=== PATIENT | male | born 1980 | race Caucasian/White ===

== ENCOUNTER 2025-02-14 09:21 | Inpatient (IN) | payer OTHER, SELFPAY ==
[2025-02-14] VITALS (11 sets, daily range): BP systolic 107–139; BP diastolic 73–92; PULSE 81–101; RESP 14–18; TEMP 36.4–37.3; O2SAT 75–100; BMI 28.2
--- NOTE | 2025-02-14 09:37 | ED.VIS.LOWEX ---
HPI History of Present Illness Chief Complaint: Lower Extremity Injury Detail of Chief Complaint: Injury left leg Informant: patient and parent Narrative Narrative: Patient presents with injury to the left leg that occurred yesterday. Patient apparently had his right foot under the freezer he was trying to get something out of it and lost his balance and fell backwards injuring his left leg. Patient unable to bear weight afterwards. Family took patient to chiropractor today to get some x-rays as they are [place] and they were told he had a femur fracture and needed to come seen by orthopedics. Patient had prior femur fracture to the right femur more than 5 years ago and that was repaired in [place]. Patient denies any other injuries. PFSH PFSH Allergy/AdvReac Type Severity Reaction Status Date / Time No Known Allergies Allergy Verified 02/14/25 09:26 Social History Smoking Status: Never smoker ROS ROS ED Review of Systems ROS Unobtainable: other Constitutional Constitutional ED: Reports lethargy; Denies chills, fever(s), sweats or weight loss Eyes Eyes: Denies blurry vision, change in vision or diplopia ENT ENT ED: Denies rhinorrhea or sore throat Cardiovascular Cardiovascular: Denies chest pain, orthopnea or racing heartbeat Respiratory/Chest Respiratory/Chest: Denies cough, dyspnea, dyspnea on exertion, orthopnea or sputum Gastrointestinal Gastrointestinal: Denies abdominal pain, diarrhea, nausea or vomiting Genitourinary Genitourinary ED: Denies dysuria, hematuria or urinary frequency Musculoskeletal Musculoskeletal: Reports other Details: Left leg injury ; Denies arthralgias, back pain, myalgias or neck pain Integumentary Denies abscess, Abrasions or rash Neurologic Neurologic: Denies headache(s) or weakness Psychiatric Psychiatric: Denies anxiety, depression or suicidal thoughts Endocrine Endocrinology: Denies polydipsia, polyphagia or polyuria Hematologic/Lymphatic Hematologic/Lymphatic: Denies easy bleeding, easy bruising or lymphadenopathy Allergic/Immunologic Allergic/Immunologic ED: Denies mouth swelling, tongue swelling or urticaria EXAM Physical Exam Const Vital Signs: 02/14/25 09:23 02/14/25 10:22 02/14/25 10:35 Temperature 99.1 F Temperature Source Oral Pulse Rate 101 H 93 Respiratory Rate 18 16 Blood Pressure 114/73 107/92 H Blood Pressure Mean 86 97 Pulse Ox 93 97 75 Oxygen Delivery Method Room Air Room Air Room Air Oxygen Flow Rate (L/min) 02/14/25 10:36 Temperature Temperature Source Pulse Rate Respiratory Rate Blood Pressure Blood Pressure Mean Pulse Ox 94 Oxygen Delivery Method Nasal Cannula Oxygen Flow Rate (L/min) 4 Positive well nourished and well developed General Appearance ED: well developed and NAD HEENT Reports TM's clear and moist mucous membranes normocephalic and atraumatic; Negative for trauma or tenderness Tympanic Membrane ED: Yes TM's clear Eyes PERRL and EOMs intact bilaterally General Eye ED: Negative for pale conjunctiva or scleral icterus Neck no lymphadenopathy, supple and no JVD General: Negative for tenderness Chest Wall inspection of chest normal and palpation of chest normal Chest: Negative for tenderness Resp normal respiratory effort and clear to auscultation bilaterally Effort and Inspection: Negative for respiratory distress or pain with movement Auscultation: Negative for rhonchi, wheezes or diminished lung sounds Cardio regular rate, regular rhythm, S1 normal heart sound, S2 normal heart sound and no murmurs Peripheral Pulses: pulses 2+ throughout GI normal to inspection, nondistended, normoactive bowel sounds, soft to palpation, non-tender, non-distended and no masses Back/Spine no CVA tenderness and no thoracic nor lumbar tenderness Extremity Extremity Narrative: Left leg-patient has obvious soft tissue swelling over the left thigh. He has pain with range of motion. Minimal shortening of the left side. Neurovascular intact distally. No broken skin noted General Extremety ED: Negative for edema General Extremity: Negative for edema Neuro oriented x3, CN's II-XII intact bilaterally, no sensory deficits noted and gait normal Sensorium / Orientation: awake, alert, oriented to person, oriented to place and oriented to time Motor Exam: strength 5/5 throughout and strength abnormal Psych mental status grossly normal Skin no rashes or lesions noted and no wounds MDM MDM MDM Narrative Medical decision making narrative: Patient brought to the emergency department by EMS. Patient seen initially at chiropractor today and had x-rays of the left femur that showed a femur fracture. Parents brought a disc with images and will review that. Will place an IV and get basic labs. Will review images and consult with orthopedics. CBC with differential obtained showed a white count of 12.2 with hemoglobin 12.7 and platelet count of 276. Chemistries unremarkable. Lab Data Attestation: I reviewed the patient's lab results. Labs: Laboratory Results - last 24 hr 02/14/25 09:50 WBC 12.2 H RBC 4.07 L Hgb 12.7 L Hct 35.6 L MCV 87.5 MCH 31.2 MCHC 35.7 RDW Std Deviation 38.9 RDW Coeff of Payton 12.2 Plt Count 276 MPV 9.7 Immature Gran % (Auto) 0.400 Neut % (Auto) 78.6 H Lymph % (Auto) 10.3 L Woodson % (Auto) 10.3 H Eos % (Auto) 0.1 Baso % (Auto) 0.3 Absolute Neuts (auto) 9.6 H Absolute Lymphs (auto) 1.26 Nucleated RBC % 0 Sodium 129 L Potassium 4.1 Chloride 93 L Carbon Dioxide 27.0 Anion Gap 10 BUN 14 Creatinine 0.50 L Estim Creat Clear Calc 190.56 Est GFR (MDRD) Non-Af 130 BUN/Creatinine Ratio 27.8 H Glucose 211 H Calcium 8.7 Radiography Diagnostic Testing: Clinical Impression(s) from Imaging Studies Chest X-Ray 02/14/25 10:00 IMPRESSION: Multiple left rib fractures are noted, probably chronic in nature. Marked left pleural thickening is identified. No definite pleural effusion is seen, but cannot exclude a small one. No pneumothorax is seen. No evidence of pulmonary edema. No focal infiltrate is evident. No evidence of cardiomegaly. Mild degenerative changes of the visualized spine are also seen. Reading Location: [facility] Femur X-Ray 02/14/25 10:00 IMPRESSION: A significantly Comminuted Fracture of the intertrochanteric region and proximal shaft of the Left Femur is seen, with significant varus angulation. [id number] degenerative changes of the left knee are seen, upon limited evaluation. Partially visualized right femur demonstrates a partially visualized intramedullary nail and proximal screw. No additional fracture site is seen. At least mild degenerative changes of the visualized lower lumbar spine also noted. Reading Location: [facility] Pelvis X-Ray 02/14/25 10:00 IMPRESSION: A significantly Comminuted Fracture of the intertrochanteric region and proximal shaft of the Left Femur is seen, with significant varus angulation. [id number] degenerative changes of the left knee are seen, upon limited evaluation. Partially visualized right femur demonstrates a partially visualized intramedullary nail and proximal screw. No additional fracture site is seen. At least mild degenerative changes of the visualized lower lumbar spine also noted. Reading Location: [place] [id number] 4 view x-rays of the left femur obtained interpreted by myself as fracture of the left femoral neck and lesser trochanter. Varus angulation noted. Radiology in agreement. 1 view x-ray of the pelvis obtained showed left hip fracture otherwise no other fractures noted. Radiology in agreement. 1 view chest x-ray obtained interpreted by myself as no evidence of infiltrate or pneumothorax or acute disease process. Radiology in agreement. Radiology also noted old left rib fractures. Discharge Plan Triage Chief Complaint: Lower Extremity Injury ED Provider: Heather Alarcon Dx/Rx/DC Orders Clinical Impression: Fall, Closed fracture of left hip Primary Care Provider: DIANA COHEN Referrals: DIANA COHEN [Other] Print Language: Khmer Disposition Disposition: Acute Care [facility]
--- NOTE | 2025-02-14 10:00 | RAD_ITS ---
PROCEDURE: FEMUR MIN 2 VIEWS; PELVIS 1 OR 2 VIEWS 02/14/2025 REASON FOR EXAM: INJURY; FALL TECHNIQUE: FEMUR MIN 2 VIEWS; PELVIS 1 OR 2 VIEWS COMPARISON: None. RAD/Femur Min 2 Views IMPRESSION: A significantly Comminuted Fracture of the intertrochanteric region and proxima l shaft of the Left Femur is seen, with significant varus angulation. [id number] degenerative changes of the left knee are seen, upon limited e valuation. Partially visualized right femur demonstrates a partially visualized intramedul jakob nail and proximal screw. No additional fracture site is seen. At least mild degenerative changes of the visualized lower lumbar spine also no tita. Reading Location: [facility]
--- NOTE | 2025-02-14 10:00 | RAD_ITS ---
PROCEDURE: CHEST 1 VIEW 02/14/2025 REASON FOR EXAM: HIP FX TECHNIQUE: Frontal view of the chest. COMPARISON: None. RAD/Chest 1 View IMPRESSION: Multiple left rib fractures are noted, probably chronic in nature. Marked left pleural thickening is identified. No definite pleural effusion is seen, but cannot exclude a small one. No pneumothorax is seen. No evidence of pulmonary edema. No focal infiltrate is evident. No evidence of cardiomegaly. Mild degenerative changes of the visualized spine are also seen. Reading Location: [place] [id number]
--- NOTE | 2025-02-14 10:00 | RAD_ITS ---
PROCEDURE: FEMUR MIN 2 VIEWS; PELVIS 1 OR 2 VIEWS 02/14/2025 REASON FOR EXAM: INJURY; FALL TECHNIQUE: FEMUR MIN 2 VIEWS; PELVIS 1 OR 2 VIEWS COMPARISON: None. RAD/Pelvis 1 or 2 Views IMPRESSION: A significantly Comminuted Fracture of the intertrochanteric region and proxima l shaft of the Left Femur is seen, with significant varus angulation. [id number] degenerative changes of the left knee are seen, upon limited e valuation. Partially visualized right femur demonstrates a partially visualized intramedul jakob nail and proximal screw. No additional fracture site is seen. At least mild degenerative changes of the visualized lower lumbar spine also no tita. Reading Location: [facility]
[2025-02-14 10:03] LABS: Hematocrit 35.6 % (40-54); Hemoglobin 12.7 g/dL (13.0-16.5); Immature Granulocytes Count 0.050 X10^3/uL (0.0-0.0); Mean Corp Hgb Conc 35.7 g/dL (32-36); Mean Corpuscular Volume 87.5 fL (80-94); Mean Platelet Vol. 9.7 fl (6.2-12.0); NRBC Flagged by Analyzer 0 % (0-5); Platelet Count 276 K/mm3 (150-450); RBC Distribution Width CV 12.2 % (11.6-14.6); RBC Distribution Width SD 38.9 fl (35.1-43.9); Red Blood Count 4.07 M/mm3 (4.6-6.2); White Blood Count 12.2 K/mm3 (4.4-11.0)
[2025-02-14 10:23] LABS: Anion Gap 10 (5-15); BUN 14 mg/dL (4-19); BUN/Creat Ratio 27.8 RATIO (10-20); Calcium,Total 8.7 mg/dL (7.6-11.0); Carbon Dioxide 27.0 mmol/L (21.0-32.0); Chloride 93 mmol/L (98-108); Estimated Creatinine Clearance 190.56 ml/min (50-250); Glucose 211 mg/dL (70-99); Potassium 4.1 mmol/L (3.3-5.1)
--- NOTE | 2025-02-14 11:23 | HP.PCM.HOS_ITS ---
HPI - General General Date of Admission: 02/14/25 Date of Service: 02/14/25 Chief Complaint: left hip fracture HPI Narrative BONITA BLAKE, is a 44 M with a PMH as outlined who presents via the ED on 02/14/2025 with a complaint of left hip fracutre. He caught his foot under the freezer and lost his balance and fell, resulting in injury to his left leg. He could not weight bear and had severe pain in his LLE so the family took him to a chiropractor to get some xrays. They were told the xrays showd he had a left femur fracture and so was told to come to the ED. PFSH Allergy/AdvReac Type Severity Reaction Status Date / Time No Known Allergies Allergy Verified 02/14/25 09:26 Social History Smoking Status: Never smoker Vital Signs Vital Signs Vital Signs: 02/14/25 09:23 02/14/25 10:22 02/14/25 10:35 Temperature 99.1 F Temperature Source Oral Pulse Rate 101 H 93 Respiratory Rate 18 16 Blood Pressure 114/73 107/92 H Blood Pressure Mean 86 97 Pulse Ox 93 97 75 Oxygen Delivery Method Room Air Room Air Room Air Oxygen Flow Rate (L/min) 02/14/25 10:36 02/14/25 11:00 Temperature Temperature Source Pulse Rate 84 Respiratory Rate 16 Blood Pressure 130/81 H Blood Pressure Mean 97 Pulse Ox 94 95 Oxygen Delivery Method Nasal Cannula Oxygen Flow Rate (L/min) 4 Weight Weight: 174 lb 13.225 oz Body Mass Index (BMI) 28.2 Results Lab / Micro Data 02/14/25 09:50 02/14/25 09:50 Labs: Laboratory Results - last 24 hr 02/14/25 09:50: WBC 12.2 H, RBC 4.07 L, Hgb 12.7 L, Hct 35.6 L, MCV 87.5, MCH 31.2, MCHC 35.7, RDW Std Deviation 38.9, RDW Coeff of Payton 12.2, Plt Count 276, MPV 9.7, Immature Gran % (Auto) 0.400, Neut % (Auto) 78.6 H, Lymph % (Auto) 10.3 L, [place] % (Auto) 10.3 H, Eos % (Auto) 0.1, Baso % (Auto) 0.3, Absolute Neuts (auto) 9.6 H, Absolute Lymphs (auto) 1.26, Nucleated RBC % 0, Sodium 129 L, Potassium 4.1, Chloride 93 L, Carbon Dioxide 27.0, Anion Gap 10, BUN 14, C reatinine 0.50 L, Estim Creat Clear Calc 190.56, Est GFR (MDRD) Non-Af 130, B UN/Creatinine Ratio 27.8 H, Glucose 211 H, Calcium 8.7 Imaging Radiology Impression Chest X-Ray 02/14/25 10:00 IMPRESSION: Multiple left rib fractures are noted, probably chronic in nature. Marked left pleural thickening is identified. No definite pleural effusion is seen, but cannot exclude a small one. No pneumothorax is seen. No evidence of pulmonary edema. No focal infiltrate is evident. No evidence of cardiomegaly. Mild degenerative changes of the visualized spine are also seen. Reading Location: [place] [id number] Femur X-Ray 02/14/25 10:00 IMPRESSION: A significantly Comminuted Fracture of the intertrochanteric region and proximal shaft of the Left Femur is seen, with significant varus angulation. [id number] degenerative changes of the left knee are seen, upon limited evaluation. Partially visualized right femur demonstrates a partially visualized intramedullary nail and proximal screw. No additional fracture site is seen. At least mild degenerative changes of the visualized lower lumbar spine also noted. Reading Location: [place] [address] Pelvis X-Ray 02/14/25 10:00 IMPRESSION: A significantly Comminuted Fracture of the intertrochanteric region and proximal shaft of the Left Femur is seen, with significant varus angulation. [id number] degenerative changes of the left knee are seen, upon limited evaluation. Partially visualized right femur demonstrates a partially visualized intramedullary nail and proximal screw. No additional fracture site is seen. At least mild degenerative changes of the visualized lower lumbar spine also noted. Reading Location: [place] [id number]
[2025-02-14] MEDS: 0.9% Normal Saline (1000mL) 1,000 ML 125 ML IV ×2 (13:11→21:18)
--- NOTE | 2025-02-14 13:35 | CON.PCM.OR_ITS ---
HPI Consult Data Date of Consult: 02/14/25 HPI Narrative Reason for Consultation: Left intertrochanteric fracture HPI Narrative: BONITA BLAKE, is a 44 M with PMH of spherocytosis (splenectomy at age 8) who presents to the ER today 02/14/2025 from [place] [facility] office. He was following up today from a chiropractic appointment after having a fall. Fall was 02/13/2025 at their [employer] when his foot got caught under the freezer lost his balance and fell onto his left leg. Chiropractor took x-rays noted a left hip fracture and sent to the office for follow-up. X-rays were consistent with a displaced comminuted left intertrochanteric and subtrochanteric hip fracture. Patient's mother was a patient of Dr. Love and per chiropractor recommendations they followed up with orthopaedics. Dr. Gan on-call for orthopedics was consulted. Patient currently on O2 NC after getting morphine and becoming hypoxic. since being on O2 he has had O2 >94. patient also has a history of right hip fx and IM nail about 5 years ago when he jumped down off a truck/trailer bed. [facility] Home Medications ?Medication ?Instructions ?Recorded ?Last Taken ?Type sertraline 100 mg tablet 200 mg PO DAILY mood stabili zer 02/14/25 Unknown History Allergy/AdvReac Type Severity Reaction Status Date / Time No Known Allergies Allergy Verified 02/14/25 09:26 Social History Smoking Status: Never smoker Vital Signs Vital Signs Vital Signs: 02/14/25 09:23 02/14/25 10:22 02/14/25 10:35 Temperature 99.1 F Temperature Source Oral Pulse Rate 101 H 93 Respiratory Rate 18 16 Respiratory Effort Blood Pressure 114/73 107/92 H Blood Pressure Mean 86 97 Blood Pressure Source Blood Pressure Position Blood Pressure Location Pulse Ox 93 97 75 Oxygen Delivery Method Room Air Room Air Room Air Oxygen Flow Rate (L/min) 02/14/25 10:36 02/14/25 11:00 02/14/25 11:37 Temperature 98.6 F Temperature Source Pulse Rate 84 81 Respiratory Rate 16 16 Respiratory Effort Blood Pressure 130/81 H 126/81 H Blood Pressure Mean 97 96 Blood Pressure Source Blood Pressure Position Blood Pressure Location Pulse Ox 94 95 100 Oxygen Delivery Method Nasal Cannula Oxygen Flow Rate (L/min) 4 02/14/25 11:53 02/14/25 11:56 02/14/25 12:45 Temperature 98 F 98 F Temperature Source Oral Pulse Rate 97 94 Respiratory Rate 14 14 18 Respiratory Effort Blood Pressure 127/86 H 126/76 H Blood Pressure Mean 99 92 Blood Pressure Source Monitor Blood Pressure Position Semi-Fowlers Blood Pressure Location Left Arm Pulse Ox 99 95 96 Oxygen Delivery Method Room Air Nasal Cannula Oxygen Flow Rate (L/min) 2 02/14/25 12:54 Temperature Temperature Source Pulse Rate Respiratory Rate Respiratory Effort Normal Blood Pressure Blood Pressure Mean Blood Pressure Source Blood Pressure Position Blood Pressure Location Pulse Ox Oxygen Delivery Method Nasal Cannula Oxygen Flow Rate (L/min) 2 Weight Weight: 79.3 kg Body Mass Index (BMI) 28.2 Physical Exam Narrative left leg cool to touch obvious deformity SILT of left lower leg able to wiggle toes DP pulses bounding tender to palpation at left hip Lab / Micro Data 02/14/25 09:50 02/14/25 09:50 Labs: Laboratory Results - last 24 hr 02/14/25 09:50: WBC 12.2 H, RBC 4.07 L, Hgb 12.7 L, Hct 35.6 L, MCV 87.5, MCH 31.2, MCHC 35.7, RDW Std Deviation 38.9, RDW Coeff of Payton 12.2, Plt Count 276, MPV 9.7, Immature Gran % (Auto) 0.400, Neut % (Auto) 78.6 H, Lymph % (Auto) 10.3 L, [place] % (Auto) 10.3 H, Eos % (Auto) 0.1, Baso % (Auto) 0.3, Absolute Neuts (auto) 9.6 H, Absolute Lymphs (auto) 1.26, Nucleated RBC % 0, Sodium 129 L, Potassium 4.1, Chloride 93 L, Carbon Dioxide 27.0, Anion Gap 10, BUN 14, C reatinine 0.50 L, Estim Creat Clear Calc 190.56, Est GFR (MDRD) Non-Af 130, B UN/Creatinine Ratio 27.8 H, Glucose 211 H, Calcium 8.7 Imaging Radiology Impression Chest X-Ray 02/14/25 10:00 IMPRESSION: Multiple left rib fractures are noted, probably chronic in nature. Marked left pleural thickening is identified. No definite pleural effusion is seen, but cannot exclude a small one. No pneumothorax is seen. No evidence of pulmonary edema. No focal infiltrate is evident. No evidence of cardiomegaly. Mild degenerative changes of the visualized spine are also seen. Reading Location: [facility] Femur X-Ray 02/14/25 10:00 IMPRESSION: A significantly Comminuted Fracture of the intertrochanteric region and proximal shaft of the Left Femur is seen, with significant varus angulation. [id number] degenerative changes of the left knee are seen, upon limited evaluation. Partially visualized right femur demonstrates a partially visualized intramedullary nail and proximal screw. No additional fracture site is seen. At least mild degenerative changes of the visualized lower lumbar spine also noted. Reading Location: [facility] Pelvis X-Ray 02/14/25 10:00 IMPRESSION: A significantly Comminuted Fracture of the intertrochanteric region and proximal shaft of the Left Femur is seen, with significant varus angulation. [id number] degenerative changes of the left knee are seen, upon limited evaluation. Partially visualized right femur demonstrates a partially visualized intramedullary nail and proximal screw. No additional fracture site is seen. At least mild degenerative changes of the visualized lower lumbar spine also noted. Reading Location: [place] [id number] Assessment & Plan Assessment/Plan (1) Closed fracture of left hip: PLAN: Displaced comminuted left intertrochanteric hip fracture 1. Plan for OR tomorrow for intramedullary nail 2. N.p.o. at midnight 3. Medical optimization per primary 4. Bedrest 5. Hold DVT prophylaxis after midnight.
[2025-02-14 16:59] LABS: AST(SGOT) 203 U/L (<=37); Alanine Aminotransfer ALT/SGPT 130 U/L (<=46); Albumin, Serum 3.7 g/dL (3.5-5.0); Alkaline Phosphatase 103 U/L (40-129); Anion Gap 13 (5-15); BUN 11 mg/dL (4-19); BUN/Creat Ratio 23.1 RATIO (10-20); Calcium,Total 8.6 mg/dL (7.6-11.0); Carbon Dioxide 24.8 mmol/L (21.0-32.0); Chloride 95 mmol/L (98-108); Estimated Creatinine Clearance 190.61 ml/min (50-250); Globulin 4.2 g/dL (2.2-4.2); Glucose 188 mg/dL (70-99); Potassium 4.3 mmol/L (3.3-5.1)
--- NOTE | 2025-02-14 17:09 | PCM.HP.STD ---
HPI - General General Date of Admission: 02/14/25 Date of Service: 02/14/25 Chief Complaint: left hip fracture HPI Narrative BONITA BLAKE, is a 44 M with a PMH as outlined who presents via the ED on 02/14/2025 with a complaint of left hip fracture. He caught his foot under the freezer and lost his balance and fell, resulting in injury to his left leg. He could not weight bear and had severe pain in his LLE so the family took him to a chiropractor to get some xrays. They were told the xrays showed he had a left femur fracture and so was told to come to the ED. I saw patient with his parents by his bedside. He had no active complaints and pain was quite well-controlled. 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 He has no other underlying medical issues. He had a similar fall about 5 years ago and had his right hip also replaced. Review of systems otherwise negative. Vitals at time of review were temperature of 98 Fahrenheit with blood pressure of 127/86, respiratory rate of 14 and pulse rate of 97 he was saturating at 99% on room air. CBC showed hemoglobin of 12.7 with WBC of 12.2 and platelets of 276. Chemistry showed sodium of 133 with potassium of 4.3 and bicarb of 24.8. Anion gap is 13. Creatinine is 0.49. Total bilirubin is 2.63 with AST of 203 and ALT of 130. There are no previous LFTs to compare with. Pelvic x-ray showed a significantly comminuted fracture of the intertrochanteric region and proximal shaft of the left femur and chest x-ray showed multiple left rib fractures which were chronic in nature and marked left pleural thickening with no definite pleural effusion seen. He has been admitted to be managed for acute left hip fracture due to mechanical fall. [facility] Home Medications ?Medication ?Instructions ?Recorded ?Last Taken ?Type sertraline 100 mg tablet 200 mg PO DAILY mood stabilizer 02/14/25 Unknown History Allergy/AdvReac Type Severity Reaction Status Date / Time No Known Allergies Allergy Verified 02/14/25 09:26 Social History Smoking Status: Never smoker ROS Constitutional Constitutional: Reports weakness; Denies anorexia, chills, fatigue, fever(s) or malaise Eyes Eyes: Denies change in vision ENT HEENT: Denies dysphagia or headache(s) Cardiovascular Cardiovascular: Denies chest pain, dyspnea on exertion, edema, orthopnea, palpitations, paroxysmal nocturnal dyspnea or rapid heart rate Respiratory/Chest Respiratory/Chest: Denies cough, dyspnea, shortness of breath at rest or shortness of breath with exertion Gastrointestinal Gastrointestinal: Denies abdominal pain, constipation, diarrhea, nausea or vomiting Genitourinary Genitourinary: Denies dysuria Musculoskeletal Musculoskeletal: Reports joint pain; Denies back pain, joint swelling, myalgias or neck pain Neurologic Neurologic: Reports focal weakness; Denies confusion, dizziness, headache(s) or seizures Psychiatric Psychiatric: Denies anxiety or depression Vital Signs Vital Signs Vital Signs: 02/14/25 09:23 02/14/25 10:22 02/14/25 10:35 Temperature 99.1 F Temperature Source Oral Pulse Rate 101 H 93 Respiratory Rate 18 16 Respiratory Effort Blood Pressure 114/73 107/92 H Blood Pressure Mean 86 97 Blood Pressure Source Blood Pressure Position Blood Pressure Location Pulse Ox 93 97 75 Oxygen Delivery Method Room Air Room Air Room Air Oxygen Flow Rate (L/min) 02/14/25 10:36 02/14/25 11:00 02/14/25 11:37 Temperature 98.6 F Temperature Source Pulse Rate 84 81 Respiratory Rate 16 16 Respiratory Effort Blood Pressure 130/81 H 126/81 H Blood Pressure Mean 97 96 Blood Pressure Source Blood Pressure Position Blood Pressure Location Pulse Ox 94 95 100 Oxygen Delivery Method Nasal Cannula Oxygen Flow Rate (L/min) 4 02/14/25 11:53 02/14/25 11:56 02/14/25 12:45 Temperature 98 F 98 F Temperature Source Oral Pulse Rate 97 94 Respiratory Rate 14 14 18 Respiratory Effort Blood Pressure 127/86 H 126/76 H Blood Pressure Mean 99 92 Blood Pressure Source Monitor Blood Pressure Position Semi-Fowlers Blood Pressure Location Left Arm Pulse Ox 99 95 96 Oxygen Delivery Method Room Air Nasal Cannula Oxygen Flow Rate (L/min) 2 02/14/25 12:54 Temperature Temperature Source Pulse Rate Respiratory Rate Respiratory Effort Normal Blood Pressure Blood Pressure Mean Blood Pressure Source Blood Pressure Position Blood Pressure Location Pulse Ox Oxygen Delivery Method Nasal Cannula Oxygen Flow Rate (L/min) 2 Weight Weight: 174 lb 13.225 oz Body Mass Index (BMI) 28.2 Physical Exam Const alert and no apparent distress Constitutional Narrative: has underlying MRDD but is able to communicate and answer questions. General Appearance: cooperative HEENT normocephalic, head/scalp atraumatic and hearing grossly normal bilaterally Mouth: oral and palatal mucosa normal Eyes PERRL and EOMs intact bilaterally Neck no lymphadenopathy and supple Resp normal respiratory effort and clear to auscultation bilaterally Cardio regular rate, regular rhythm, S1 normal heart sound, S2 normal heart sound and no murmurs GI normal to inspection, nondistended, normoactive bowel sounds, soft to palpation and non-tender Extremity normal to inspection, full ROM and no clubbing, cyanosis or edema Neuro oriented x3, CN's II-XII intact bilaterally and moves all extremities Sensorium / Orientation: awake and alert Motor Exam: strength 5/5 throughout Psych affect normal Results Lab / Micro Data 02/14/25 09:50 02/14/25 14:14 Labs: Laboratory Results - last 24 hr 02/14/25 09:50: WBC 12.2 H, RBC 4.07 L, Hgb 12.7 L, Hct 35.6 L, MCV 87.5, MCH 31.2, MCHC 35.7, RDW Std Deviation 38.9, RDW Coeff of Payton 12.2, Plt Count 276, MPV 9.7, Immature Gran % (Auto) 0.400, Neut % (Auto) 78.6 H, Lymph % (Auto) 10.3 L, Estill % (Auto) 10.3 H, Eos % (Auto) 0.1, Baso % (Auto) 0.3, Absolute Neuts (auto) 9.6 H, Absolute Lymphs (auto) 1.26, Nucleated RBC % 0, Sodium 129 L, Potassium 4.1, Chloride 93 L, Carbon Dioxide 27.0, Anion Gap 10, BUN 14, Creatinine 0.50 L, Estim Creat Clear Calc 190.56, Est GFR (MDRD) Non-Af 130, BUN/Creatinine Ratio 27.8 H, Glucose 211 H, Calcium 8.7 02/14/25 14:14: Sodium 133, Potassium 4.3, Chloride 95 L, Carbon Dioxide 24.8, Anion Gap 13, BUN 11, Creatinine 0.49 L, Estim Creat Clear Calc 190.61, Est GFR (MDRD) Non-Af 132, BUN/Creatinine Ratio 23.1 H, Glucose 188 H, Calcium 8.6, Total Bilirubin 2.63 H, AST 203 H, ALT 130 H, Alkaline Phosphatase 103, Total Protein 7.9, Albumin 3.7, Globulin 4.2, Albumin/Globulin Ratio 0.9, Blood Type O POSITIVE, Antibody Screen NEGATIVE Imaging Radiology Impression Chest X-Ray 02/14/25 10:00 IMPRESSION: Multiple left rib fractures are noted, probably chronic in nature. Marked left pleural thickening is identified. No definite pleural effusion is seen, but cannot exclude a small one. No pneumothorax is seen. No evidence of pulmonary edema. No focal infiltrate is evident. No evidence of cardiomegaly. Mild degenerative changes of the visualized spine are also seen. Reading Location: [facility] Femur X-Ray 02/14/25 10:00 IMPRESSION: A significantly Comminuted Fracture of the intertrochanteric region and proximal shaft of the Left Femur is seen, with significant varus angulation. [id number] degenerative changes of the left knee are seen, upon limited evaluation. Partially visualized right femur demonstrates a partially visualized intramedullary nail and proximal screw. No additional fracture site is seen. At least mild degenerative changes of the visualized lower lumbar spine also noted. Reading Location: [facility]1 Pelvis X-Ray 02/14/25 10:00 IMPRESSION: A significantly Comminuted Fracture of the intertrochanteric region and proximal shaft of the Left Femur is seen, with significant varus angulation. [id number] degenerative changes of the left knee are seen, upon limited evaluation. Partially visualized right femur demonstrates a partially visualized intramedullary nail and proximal screw. No additional fracture site is seen. At least mild degenerative changes of the visualized lower lumbar spine also noted. Reading Location: [facility] Assessment & Plan Assessment/Plan (1) Closed fracture of left hip: (2) Fall: PLAN: Plan #Closed left hip fracture due to mechanical fall Admit to [facility] Patient fell after his leg got caught under the freezer. Imaging shows a left comminuted femoral neck fracture Orthopedics consulted. P.o. oxycodone and IV morphine as needed for pain. Hold off on Tylenol due to elevated liver enzymes PT OT consult. Fall precautions. Chest x-ray did not show any acute cardiopulmonary pathology. There is no indication for any further workup and patient is of low to moderate risk for surgery. #Elevated liver enzymes: Total bilirubin is elevated as well as AST and ALT. There are no previous LFTs to compare with. Will check to see if this is a direct or indirect hyperbilirubinemia and also get liver ultrasound and DVT prophylaxis: Lovenox CODE STATUS: Patient's parents counseled extensively about different types of CODE STATUS including full code, DNR CCA and DNR CCA. They elect for patient to be full code. Charges/Coding Visit Charges Inpatient E&M: 08569 Init Hosp L3
[2025-02-14 20:27] LABS: Bilirubin, Direct 0.63 mg/dL (0.00-0.30)
[2025-02-14 20:35] LABS: Prothrombin Time (Protime)PT. 14.8 SECONDS (11.7-14.9)
[2025-02-14 20:41] LABS: Hepatitis B Surface Antigen Nonreactive (Nonreactive); Hepatitis C Antibody Nonreactive (Nonreactive)
[2025-02-15] VITALS (14 sets, daily range): BP systolic 101–127; BP diastolic 53–78; PULSE 84–126; RESP 16–18; TEMP 36.4–37.2; O2SAT 93–100; BMI 28.2
[2025-02-15 05:57] LABS: Hematocrit 31.4 % (40-54); Hemoglobin 11.0 g/dL (13.0-16.5); Immature Granulocytes Count 0.050 X10^3/uL (0.0-0.0); Mean Corp Hgb Conc 35.0 g/dL (32-36); Mean Corpuscular Volume 89.5 fL (80-94); Mean Platelet Vol. 10.0 fl (6.2-12.0); NRBC Flagged by Analyzer 0 % (0-5); POSITIVE DIFFERENTIAL YES; Platelet Count 206 K/mm3 (150-450); RBC Distribution Width CV 12.3 % (11.6-14.6); RBC Distribution Width SD 40.1 fl (35.1-43.9); Red Blood Count 3.51 M/mm3 (4.6-6.2); White Blood Count 12.0 K/mm3 (4.4-11.0)
--- NOTE | 2025-02-15 06:00 | EKG12_ITS ---
Test Reason : AM EKG Blood Pressure : */* mmHG Vent. Rate : 89 BPM Atrial Rate : 89 BPM P-R Int : 148 ms QRS Dur : 88 ms QT Int : 368 ms P-R-T Axes : 59 19 63 degrees QTcB Int : 447 ms Normal sinus rhythm Nonspecific T wave abnormality Abnormal ECG No previous ECGs available Confirmed by KRISH RIOS, KASANDRA ([id number]), editorial manager KWASI BHATT ([id number]) on 02/15/2025 9:30:28 AM Referred By: NISREEN Confirmed By: KASANDRA RUTHERFORD MD
[2025-02-15 06:03] LABS: Prothrombin Time (Protime)PT. 14.2 SECONDS (11.7-14.9)
[2025-02-15 06:14] LABS: Differential Indicated SCAN CRITERIA MET
[2025-02-15 06:19] LABS: Anion Gap 8 (5-15); BUN 8 mg/dL (4-19); BUN/Creat Ratio 19.7 RATIO (10-20); Calcium,Total 8.4 mg/dL (7.6-11.0); Carbon Dioxide 28.6 mmol/L (21.0-32.0); Chloride 97 mmol/L (98-108); Estimated Creatinine Clearance 233.50 ml/min (50-250); Glucose 189 mg/dL (70-99); Potassium 4.1 mmol/L (3.3-5.1)
[2025-02-15 09:13] LABS: AST(SGOT) 77 U/L (<=37); Alanine Aminotransfer ALT/SGPT 109 U/L (<=46); Albumin, Serum 3.5 g/dL (3.5-5.0); Alkaline Phosphatase 92 U/L (40-129); Bilirubin, Direct 0.71 mg/dL (0.00-0.30); Globulin 3.5 g/dL (2.2-4.2)
--- NOTE | 2025-02-15 10:32 | CASEMGMT ---
SAHARA HAQ Assessment Face to Face with patient for initial transition planning/care coordination assessment. SAHARA HAQ introduced self and role at [facility], pt voices understanding. Pt is A&Ox3 and is resting comfortably in bed and is calm. Pt has a hx of developmental disability but is able to answer most of this RN CM's questions for assessment. Pt's parents at bedside and willing to assist. Care providers, pharmacy, and demographics verified. Admitting dx: Lt Hip fracture due to mechanical fall LACE Strata: 1 PCP: Marcio Cha Specialists: Denies Preferred Pharmacy: [facility] in [place] Insurance: Self pay. SW notified Prescription Benefit: None at this time. Care Management to follow LNOK: Adam (Father), Key (Mother) Living Arrangements: Pt lives with his parents in [place] in a 2 story home with 2 steps to enter. Pt's mother states that they used to live in [place] and that they were in the area for knee surgery under Dr Love for the pt's mother. Pt and family plan to return to [place] at the time of DC ADLs/IADLs: Parents report that the pt is indep at baseline. Parents report that they are able to assist the pt at home when needed. Transportation: Parents DME: [facility] with sufficient supplies including test strips, lancet, and EtOH swabs. Access to a cane, FWW, and W/C. HHC/SNF: denies hx Pt?s goal: TBD Plan: TBD. Follow for rxs costs. Surgery is planned for today. PT plans to evaluate subsequently. At this time, the pt's parents state that they have been through this process before and that they plan to bring the pt back home once medically ready. Pt's parents state that they do not want or need HHC at this time but that they might be open to bringing the pt to OP therapy. Pt and pt's parents deny any further questions or concerns at this time. CM to follow. Bradly Smith RN, CM
[2025-02-15] MEDS: 0.9% Saline Lock 10 ML Syringe IV (10:40)
[2025-02-15] MEDS: 0.9% Normal Saline (1000mL) 1,000 ML 75 ML IV ×2 (10:40→18:35)
--- NOTE | 2025-02-15 11:45 | PCM.PRE.AN2 ---
ASA Classification* ASA Classification ASA Classification: 2 Assessment & Plan Anesthesia* Anesthesia Assessment Anesthesia Assessment: Discussed sedation and/or anesthesia options, risks, benefits, and alternatives with patient/parents/legal guardian/POA. Questions invited. The patient/parents/legal guardian/POA seems to understand and agrees to proceed with anesthesia plan. Reviewed the physical assessment, medical history, allergy history and patient home medications list prior to surgery/procedure/anesthetic and documented any changes. Performed airway and anesthesia risk assessments. Anesthesia Type Anesthesia Type: General Anesthesia Focused Assessment* Temperature: 97.6 F Pulse Rate: 84 Blood Pressure: 127/76 Respiratory Rate: 18 Pulse Ox: 96 Oxygen Flow Rate (L/min): 2 Airway Assessment Mouth opens: >3 cm Mallampati Score: II Labs Anesthesia Preop lab: CBC WBC 12.0 K/mm3 (4.4-11.0) H 02/15/25 05:20 02/15/25 RBC 3.51 M/mm3 (4.6-6.2) L 02/15/25 05:20 02/15/25 Hgb 11.0 g/dL (13.0-16.5) L 02/15/25 05:20 02/15/25 Hct 31.4 % (40-54) L 02/15/25 05:20 02/15/25 Plt Count 206 K/mm3 (150-450) 02/15/25 05:20 02/15/25 CHEMISTRY Potassium 4.1 mmol/L (3.3-5.1) 02/15/25 05:20 02/15/25 Sodium 134 mmol/L (133-145) 02/15/25 05:20 02/15/25 BUN 8 mg/dL (4-19) 02/15/25 05:20 02/15/25 Creatinine 0.40 mg/dL (0.70-1.20) L 02/15/25 05:20 02/15/25 Glucose 189 mg/dL (70-99) H 02/15/25 05:20 02/15/25 COAG PT 14.2 SECONDS (11.7-14.9) 02/15/25 05:20 02/15/25 Pre-Assessment Diagnosis/Proposed Procedure Planned Operative Procedure(s): orif left hip Anesthesia History 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 When Was Last Pacemaker Check QUESTION #4 FULL TEXT: You/Your Family Experience fever (hyperthermia) with Anesthesia Last Oral Intake Last Oral intake: Last Oral Intake NPO since 00:00 02/15/25 08:00 Meds taken in AM with sips of No 02/15/25 08:00 water? Meds patient instructed to take am of surgery PONV PONV - pipe welder: PONV - pipe welder Female HX of Motion Sickness HX of N/V After Surgery Non-Smoker Duration of Surgery greater than 60 minutes Number of Risk Factors PONV Score Height & Weight Height & Weight: Anesthesia: Height & Weight Height 5 ft 5 in 02/14/25 12:38 Weight: 79.3 kg 02/14/25 09:53 Body Mass Index (BMI) 28.2 02/15/25 08:00 Respiratory Assessment Respiratory Assessment - pipe welder: Respiratory Tract Infection Hx - pipe welder Hx Respiratory Tract Infection No 02/14/25 21:14 STOP Sleep Apnea STOP Sleep Apnea - pipe welder: STOP Sleep Apnea - pipe welder Hx Hypertension No 02/15/25 08:45 Hx Sleep Apnea No 02/14/25 12:38 CPAP BIPAP Do you snore loudly (louder No 02/14/25 12:38 than talking or can be heard Do you often feel tired/ No 02/14/25 12:38 fatigued/ sleepy during daytime? Has anyone observed you stop No 02/14/25 12:38 breathing during sleep? STOP Results Negative 02/14/25 12:38 QUESTION #5 FULL TEXT : Do you snore loudly (louder than talking or can be heard through closed doors)? 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 Specify any problems Hx of Preganancy in last 3 N/A 02/14/25 12:38 Months Nurse Filling Out Transfusion KMESSENGE 02/14/25 12:38 & Questions: Date: 02/14/25 02/14/25 12:38 Time: 12:47 02/14/25 12:38 Patient unable to answer at this time (ie. confused, unrespo /Reproduction History /Reproductive History - pipe welder: /Reproductive Hx- pipe welder Hx Now Gestational Age (in weeks): EDC: Hx Hx Para Hx Section SAB Active Medications Active Medications: Current Medications Generic Name Dose Route Start Last Admin Trade Name Freq PRN Reason Stop Dose Admin Enoxaparin Sodium 40 mg 02/15/25 10:00 02/15/25 07:05 Enoxaparin 40 Mg/0.4 Ml Syringe SC Not Given DAILY KATIA Sodium Chloride 250 mls @ 15 mls/hr 02/14/25 12:42 IV .[id number] PRN Saline Flush Sodium Chloride 250 mls @ 15 mls/hr 02/14/25 12:42 IV .[id number] PRN Additional IVPB Infusion Cefazolin Sodium 2 gm/ Sodium 110 mls @ 200 mls/hr 02/15/25 15:00 Chloride IV 02/15/25 15:32 INTRAOP ONE Sodium Chloride 1,000 mls @ 75 mls/hr 02/15/25 10:25 02/15/25 10:40 IV 75 mls/hr .[id number] KATIA Administration Morphine Sulfate 2 - 4 mg 02/14/25 12:55 02/15/25 10:40 Morphine 2 Mg/Ml Syringe IV 2 mg Q3H PRN PRN Administration Pain Score 6-10 Ondansetron HCl 4 mg 02/14/25 12:53 Ondansetron 4 Mg/2 Ml Vial IV Q8H PRN PRN NAUSEA/VOMITING Oxycodone HCl 5 mg 02/14/25 12:55 02/14/25 21:24 Oxycodone 5 Mg Tablet PO 5 mg Q4H PRN PRN Administration Pain Score 4-10 Senna/Docusate Sodium 2 tablet 02/14/25 22:00 02/15/25 07:06 Senna/Docusate Sodium 1 Tablet PO Not Given BID KATIA Sertraline HCl 200 mg 02/15/25 10:00 02/15/25 07:07 Sertraline 100 Mg Tablet PO Not Given DAILY KATIA Sodium Chloride 10 - 40 ml 02/14/25 12:42 02/15/25 10:40 0.9% Saline Lock 10 Ml Syringe IV 10 ml UD PRN Administration SALINE FLUSH PFSH Home Medications ?Medication ?Instructions ?Recorded ?Last Taken ?Type sertraline 100 mg tablet 200 mg PO DAILY mood stabilizer 02/14/25 Unknown History Allergy/AdvReac Type Severity Reaction Status Date / Time No Known Allergies Allergy Verified 02/14/25 09:26 Social History Smoking Status: Never smoker Review of Systems (Anesthesia) ROS Narrative System reviewed and no additional complaints, except as documented.
--- NOTE | 2025-02-15 12:59 | CASEMGMT ---
Social Work- SATISH called Julia to coordinate on pt self pay status. Julia reports that [facility] liaison met with pt family who refused government assistance and who do not qualify for [facility] assistance fund. Pt family did pay deposit to receive discounts. SATISH met with pt and family to discuss self pay status. Pt family report no needs at this time. SATISH remains available to follow. GARCIA James
[2025-02-15] MEDS: Lactated Ringers 1,000 ML 15 ML IV (14:00)
--- NOTE | 2025-02-15 14:46 | PN_ITS ---
Subjective Subjective Patient seen and examined. I saw him with his nurse by his bedside. He complained of pain in his buttock and hip and rated the pain at about 8/10. However he was lying in bed quite comfortably. He is n.p.o. and is due for surgery today. Review of systems otherwise negative. His liver enzymes have started trending downwards. He has remained hemodynamically stable. Objective Data Objective Data Vital Signs: Vital Signs Temp Pulse Resp BP Pulse Ox O2 Del Method O2 Flow Rate 97.6 F L 84 18 127/76 H 96 Nasal Cannula 2 02/15/25 11:50 02/15/25 11:50 02/15/25 11:50 02/15/25 11:50 02/15/25 11:50 02/15/25 11:25 02/15/25 11:50 Oxygen Flow Rate (L/min) 2 Oxygen Delivery Method Nasal Cannula Weight: 174 lb 13.225 oz Body Mass Index (BMI) 28.2 Intake & Output: Intake and Output for Last 24 Hours 02/13/25 02/14/25 02/15/25 23:59 23:59 23:59 Intake Total 1000 / 1000 1800 / 1800 Output Total 1350 / 1350 Balance 1000 / 750 450 / 450 Lab / Micro Data 02/15/25 05:20 02/15/25 05:20 Labs: Laboratory Results - last 24 hr 02/14/25 14:14: Sodium 133, Potassium 4.3, Chloride 95 L, Carbon Dioxide 24.8, Anion Gap 13, BUN 11, Creatinine 0.49 L, Estim Creat Clear Calc 190.61, Est GFR (MDRD) Non-Af 132, BUN/Creatinine Ratio 23.1 H, Glucose 188 H, Calcium 8.6, T otal Bilirubin 2.63 H, AST 203 H, ALT 130 H, Alkaline Phosphatase 103, Total Protein 7.9, Albumin 3.7, Globulin 4.2, Albumin/Globulin Ratio 0.9, Blood Type O POSITIVE, Antibody Screen NEGATIVE 02/14/25 18:32: Direct Bilirubin 0.63 H, Hep Bs Antigen Nonreactive, Hep Bs Antibody Nonreactive, Hepatitis C Antibody Nonreactive 02/14/25 19:55: PT 14.8, INR 1.1 02/15/25 05:20: WBC 12.0 H, RBC 3.51 L, Hgb 11.0 L, Hct 31.4 L, MCV 89.5, MCH 31.3, MCHC 35.0, RDW Std Deviation 40.1, RDW Coeff of Payton 12.3, Plt Count 206, MPV 10.0, Immature Gran % (Auto) 0.400, Neut % (Auto) 64.3, Lymph % (Auto) 14.8 L, Barton % (Auto) 16.7 H, Eos % (Auto) 2.7, Baso % (Auto) 1.1 H, Absolute Neuts (auto) 7.7, Absolute Lymphs (auto) 1.77, Nucleated RBC % 0, Differential Comment COMMENT, PT 14.2, INR 1.1, Sodium 134, Potassium 4.1, Chloride 97 L, Carbon Dioxide 28.6, Anion Gap 8, BUN 8, Creatinine 0.40 L, Estim Creat Clear Calc 233.50, Est GFR (MDRD) Non-Af 140, BUN/Creatinine Ratio 19.7, Glucose 189 H, Calcium 8.4 02/15/25 06:50: Total Bilirubin 1.98 H, Direct Bilirubin 0.71 H, AST 77 H, ALT 109 H, Alkaline Phosphatase 92, Total Protein 7.0, Albumin 3.5, Globulin 3.5 Physical Exam Const alert and no apparent distress Constitutional Narrative: has underlying MRDD but is able to communicate and answer questions. General Appearance: cooperative HEENT normocephalic, head/scalp atraumatic and hearing grossly normal bilaterally Eyes PERRL and EOMs intact bilaterally Neck no lymphadenopathy and supple Resp Resp Narrative: Mildly diminished breath sounds bibasilarly. No wheezes or crackles. On 2 L of oxygen by nasal cannula. Cardio regular rate, regular rhythm, S1 normal heart sound, S2 normal heart sound and no murmurs GI normal to inspection, nondistended, normoactive bowel sounds, soft to palpation and non-tender Extremity Extremity Narrative: Left hip shortened and externally rotated. Skin General Skin Exam: no breakdown Neuro CN's II-XII intact bilaterally and moves all extremities Sensorium / Orientation: awake and alert Motor Exam: general weakness Psych Mood & Affect: flat affect Assessment & Plan Assessment/Plan (1) Closed fracture of left hip: (2) Fall: PLAN: Plan #Closed left hip fracture due to mechanical fall * Patient fell after his leg got caught under the freezer. Imaging shows a left comminuted femoral neck fracture * Orthopedics consulted. * P.o. oxycodone and IV morphine as needed for pain. Hold off on Tylenol due to elevated liver enzymes * PT OT consult. Fall precautions. * Chest x-ray did not show any acute cardiopulmonary pathology. * There is no indication for any further workup and patient is of low to moderate risk for surgery. * for surgery today. #Elevated liver enzymes: * Total bilirubin is elevated as well as AST and ALT.liver enzymes have started trending downwards. Hepatitis panel was negative. Will order liver ultrasound. * It appears that it was mainly an indirect hyperbilirubinemia. There does not appear to be any evidence of hemolysis though. DVT prophylaxis: Lovenox CODE STATUS: full code Charges/Coding Visit Charges Inpatient E&M: 54265 Subs Hosp L2
--- NOTE | 2025-02-15 16:19 | PCM.PN.ORT ---
Subjective Subjective Patient seen and examined. Denies any new complaints. Ready for surgery. Objective Data Objective Data Vital Signs: Vital Signs Temp Pulse Resp BP Pulse Ox O2 Del Method O2 Flow Rate 97.6 F L 84 18 127/76 H 96 Nasal Cannula 2 02/15/25 11:50 02/15/25 11:50 02/15/25 11:50 02/15/25 11:50 02/15/25 11:50 02/15/25 11:25 02/15/25 11:50 Oxygen Flow Rate (L/min) 2 Oxygen Delivery Method Nasal Cannula Weight: 174 lb 13.225 oz Body Mass Index (BMI) 28.2 Intake & Output: Intake and Output for Last 24 Hours 02/13/25 02/14/25 02/15/25 23:59 23:59 23:59 Intake Total 1000 / 1000 1800 / 1800 Output Total 1350 / 1350 Balance 1000 / 750 450 / 450 Lab / Micro Data 02/15/25 05:20 02/15/25 05:20 Labs: Laboratory Results - last 24 hr 02/14/25 14:14: Sodium 133, Potassium 4.3, Chloride 95 L, Carbon Dioxide 24.8, Anion Gap 13, BUN 11, Creatinine 0.49 L, Estim Creat Clear Calc 190.61, Est GFR (MDRD) Non-Af 132, BUN/Creatinine Ratio 23.1 H, Glucose 188 H, Calcium 8.6, Total Bilirubin 2.63 H, AST 203 H, ALT 130 H, Alkaline Phosphatase 103, Total Protein 7.9, Albumin 3.7, Globulin 4.2, Albumin/Globulin Ratio 0.9 02/14/25 18:32: Direct Bilirubin 0.63 H, Hep Bs Antigen Nonreactive, Hep Bs Antibody Nonreactive, Hepatitis C Antibody Nonreactive 02/14/25 19:55: PT 14.8, INR 1.1 02/15/25 05:20: WBC 12.0 H, RBC 3.51 L, Hgb 11.0 L, Hct 31.4 L, MCV 89.5, MCH 31.3, MCHC 35.0, RDW Std Deviation 40.1, RDW Coeff of Payton 12.3, Plt Count 206, MPV 10.0, Immature Gran % (Auto) 0.400, Neut % (Auto) 64.3, Lymph % (Auto) 14.8 L, [place] % (Auto) 16.7 H, Eos % (Auto) 2.7, Baso % (Auto) 1.1 H, Absolute Neuts (auto) 7.7, Absolute Lymphs (auto) 1.77, Nucleated RBC % 0, Differential Comment COMMENT, PT 14.2, INR 1.1, Sodium 134, Potassium 4.1, Chloride 97 L, Carbon Dioxide 28.6, Anion Gap 8, BUN 8, Creatinine 0.40 L, Estim Creat Clear Calc 233.50, Est GFR (MDRD) Non-Af 140, BUN/Creatinine Ratio 19.7, Glucose 189 H, Calcium 8.4 02/15/25 06:50: Total Bilirubin 1.98 H, Direct Bilirubin 0.71 H, AST 77 H, ALT 109 H, Alkaline Phosphatase 92, Total Protein 7.0, Albumin 3.5, Globulin 3.5 Physical Exam Narrative General -A&Ox3, NAD, appears stated age. Vital signs stable, afebrile. Respiratory -normal work of breathing, no intercostal retractions. CV -pulses regular, brisk capillary refill ?4 limbs. Abdomen-soft, nontender, nondistended. No guarding, rigidity, rebound tenderness. Musculoskeletal/neurologic -full range of motion nontender throughout bilateral upper extremities, right lower extremity with full sensation and strength in all dermatomes and myotomes. No midline cervical tenderness.Left lower extremity-no obvious deformity. Pain with logroll of the left lower extremity. Nontender throughout the left knee femoral shaft, tibial shaft and left foot/ankle. Brisk capillary refill. Sensation intact light touch L3-S1 dermatomes. DF, PF, EHL intact. DP, PT 2+. Pelvis is stable, nontender. Skin is intact without lacerations, abrasions. No ecchymosis noted. Assessment & Plan Assessment/Plan (1) Closed fracture of left hip: PLAN: Patient sustained a left intertrochanteric proximal femur fracture. -Closed, neurovascularly intact -Isolated injury -Recommending surgical intervention in the form of left femur cephalomedullary nailing -I discussed the procedure-its risks, benefits and alternative. Risks include but are not limited to bleeding, infection, loss of life or limb, risk of anesthesia, persistent pain or disability, need for additional surgery, nonunion, malunion, failure of orthopedic hardware, neurovascular injury, DVT or PE. Patient expressed understanding these risks and wished proceed with surgery. -Maintenance IV fluids, clear liquid diet after midnight n.p.o. at 2 hours prior to surgery -Type and screen -2 g Ancef on-call to the OR -Bedrest, heel protectors -Plan to proceed with surgery later today when OR becomes available Thank you for this consultation.
[2025-02-15] MEDS: Midazolam 2 MG/2 ML Syringe IV (16:27)
[2025-02-15] MEDS: Cefazolin 1 GM/5 ML Vial 2 GM IV (16:27)
[2025-02-15] MEDS: Lidocaine 2% (5ml sdv) 5 ML VIAL.MPF IV (16:32)
--- NOTE | 2025-02-15 16:40 | RAD_ITS ---
EXAM: INTRAOPERATIVE FLUOROSCOPY CLINICAL HISTORY: Intertrochanteric left femur fracture. COMPARISON: Left femur/hip radiographs 02/14/2025. TECHNIQUE: 8 intraoperative fluoroscopic images are submitted for review. FINDINGS: Patient is status post ORIF of the previously described comminuted intertrochanteric fracture of the proximal left femur, with intramedullary nail and proximal dynamic screw, with single distal interlocking screw visualized. Total fluoroscopy time 111.1 seconds. Total radiation dose 22.97 mGy. RAD/HIP, UNI W/ Pelvis 2-3 Views IMPRESSION: Intraop fluoroscopy status post ORIF of the left femur, as above. Reading Location: [id number]
[2025-02-15] MEDS: fentaNYL 100 MCG/2 ML Ampul IV (16:47)
[2025-02-15] MEDS: Bupiv/Epi 0.25% 30 ML Vial (17:42)
--- NOTE | 2025-02-15 18:12 | OP.PCM_ITS ---
Operative Report (Standard) Operative Information Date of Procedure: 02/15/25 Pre-Operative Diagnosis: Left comminuted intertrochanteric proximal femur fracture Post-Operative Diagnosis: Left comminuted intertrochanteric proximal femur fracture Surgery/Procedure Performed: Left femur cephalomedullary nailing neuropsychiatric aide: Yes Human Resources Training Manager: Joselin Nieves Tasks completed by first front ventilator: Opening & closing and Hemostasis: E lectrocautery Additional lpn medical assistant?: No Type of Anesthesia: General RN Documented Start/Stop Times: Operation Date: 02/15/25 15:00 Case Time Into Pre-Op 02/15/25 13:51 Out of Pre-Op 02/15/25 16:23 Anesthesia Start 02/15/25 16:27 Into Room 02/15/25 16:27 Procedure Start 02/15/25 16:54 Procedure End 02/15/25 17:58 Anesthesia End 02/15/25 18:09 Out of Room 02/15/25 18:09 Procedure Start Time: 16:57 Procedure Stop Time: 17:58 Select all DRAINS/GRAFTS/IMPLANTS that apply: Implanted device Implanted device details: [employer] gamma 4 125 degrees 400 mm x 11 mm, 95 mm lag screw, distal i nterlocking screw 52.5 mm Estimated Blood Loss: 200 cc Specimen collected: No Description of surgery: Patient was seen in preoperative holding area. She was identified by name, medical record number, date of . The operative extremity was marked with a surgical marker. We confirmed informed consent with the patient and questions were answered to her satisfaction. Patient was brought to the operative suite, and general anesthesia was induced on her hospital bed. Endotracheal tube was secured. After adequate anesthesia, patient was transferred to a fracture table with all bony prominences being well-padded. A perineal post was placed to secure the patient on the table. We then applied a ski boot which was well-padded to the operative extremity. The well leg was dropped into extension and secured to the axial post of the fracture table with a pillow and Coban. The left arm was brought across patient's chest with a blanket on her chest. We then performed a closed reduction maneuver with external rotation, traction, internal rotation and adduction. Fluoroscopic images were obtained. The lateral demonstrated significant displacement. Crutch was placed for additional near-anatomic reduction. We then prepped and draped the left lower extremity in normal, sterile orthopedic fashion. A timeout was performed with all parties in attendance in agreement with the side, site, and operation be performed. 2 g Ancef was administered prior to incision. No concerns were voiced and we elected to proceed. I first used fluoroscopy to eliezer the level of the fracture and planned incision for insertion of the cephalomedullary nail device. In line with the long axis of the femur, 4 fingerbreadths proximal to the tip of the greater trochanter, a full-thickness skin incision was planned.. Skin was sharply incised with 10 blade scalpel, carried into the subcutaneous tissues. The IT band was encountered and split and planned trajectory of the nail placement. The greater trochanter was then able to be palpated digitally. I then placed a threaded guidewire just medial to the tip of the greater trochanter and in the anterior third of it on the lateral. Opening reamer was then placed over top of the guidewire after placement was confirmed on C arm. Reduction was again confirmed. Ball-tipped guidewire was placed. Sequential reaming was performed to 12.5 mm. Nail length was measured to be 40 mm. Nail was opened on the back table and assembled and attached to the inserting guide. Nail was placed over top of the ball-tipped guidewire and impacted to appropriate depth. Rotation was confirmed on the lateral. Drill sleeve was placed through the targeting guide. Prior to drilling, a ball spike pusher was used to reduce the lateral trochanter area which was wanted to abduct due to the abductor tension. There was also significant flexion of the proximal segment consistent with a basicervical fragment. A stab incision was made along the proximal anterior thigh and blunt dissection was carried down to level of the femoral neck. A Sheehan was used to provide a posterior force on the proximal segment. We drilled the pin for the lag screw at an appropriate position and depth, tip to apex distance less than 25 mm on AP and lateral combined. Depth gauge was used to measure the length of the screw, 90 mm. We then used the cannulated drill to drill to an appropriate depth. Drill was removed, drill pin left in place. Lag screw was placed over top of the drill pin and tightened to an appropriate depth. Setscrew was then tightened, and then turned back a quarter turn to allow the lag screw to slide. Perfect manzanita technique was used to place a single distal interlocking screw through the dynamic slot of the screw. Skin was incised full-thickness down the level of the IT band which was also split in line with the skin incision. I drilled bicortically through the distal interlocking slot of the nail. I measured for a 52.5 mm interlocking screw which was placed by hand with excellent purchase. Instruments were removed as well as the outrigger for the nail. Final fluoroscopic images were obtained. Final fluoroscopic images were obtained. We irrigated the wounds copiously with normal saline solution. Hemostasis was excellent at this point. We then closed the deeper layers, IT band with 0 Vicryl. Intradermal buried stitches of 2-0 Vicryl were utilized and skin finally reapproximated with skin fabienne. Sterile compression dressing of Xeroform, 4 x 4's, and Tegaderm was applied. Patient tolerated procedure well without complication. He was transferred back to her hospital bed and subsequently to PACU in stable condition. Need for skilled lpn medical assistant: Joselin Nieves PA-C was critical to the outcome of the case. During the course of the procedure the physician lpn medical assistant played a vital role. Her intimate knowledge of my steps in the procedure aided in safe and expedient completion of the procedure. The PA played a vital role in positioning particularly in obtaining the appropriate positioning. The PA was also vital in the retraction of soft tissues during the exposure and protecting vital structures. The PA was also vital and obtaining fracture reduction and assisting with hardware placement. She also played a vital role in closure and dressing application with my direct supervision. Intraoperative medications: 2 g Ancef IV Post Operative Plan: Weightbearing: Weightbearing as tolerated left lower extremity with a walker Antibiotics: Ancef 1 g x 3 doses postoperatively, 1 dose given preoperatively DVT Prophylaxis: Lovenox as ordered. Recommend 4 weeks postoperative anticoagulation. Lovenox versus oral Eliquis 2.5 mg p.o. twice daily. Patel: None Dressing: Dry sterile dressing changes daily and as needed for saturation X-Rays: 2 weeks postop in the office Follow-up: 2 weeks post-operatively with me in the office Surgical Findings: Comminuted approximately femur fracture left. Stable following fixation. Complications Complications: No Admit VTE Documentation VTE Present on Admission: No VTE Mechan Device Prophylaxis: SCD's VTE Pharm Prophylaxis ordered?: Yes
--- NOTE | 2025-02-15 18:15 | PCM.POST.ANE ---
Anesthesia: Postop Eval I Current Vital Signs Temperature: 97.5 F Pulse Rate: 126 Blood Pressure: 101/53 Respiratory Rate: 16 Pulse Ox: 100 Assessment Airway patent: Yes Spontaneous unlabored respirations: Yes nausea: No Vomiting: No Anesthesia Complication: No Fluid Hydration Crystalloid volume administer (ml): 1,000 Total IV fluid infused: 1,000 Progress Note Anesthesia document: Postop Eval 1 completed: Yes
--- NOTE | 2025-02-15 18:16 | PCM.POSTANE2 ---
Anesthesia Postop Eval I Sum Postop Eval Completion status Anesthesia document: Postop Eval 1 completed: Yes Anesthesia Postop Eval I Summary Anesthesia Postop Eval I Summary: Anesthesia Postop Eval I: Assessment Summary Airway patent Yes 02/15/25 18:15 Spontaneous unlabored Yes 02/15/25 18:15 respirations Mental status nausea No 02/15/25 18:15 Vomiting No 02/15/25 18:15 Anesthesia Postop Eval I: Fluid Summary Crystalloid volume administer 1,000 02/15/25 18:15 (ml) Colloids volume administered ( ml) Blood Product volume administered (ml) Total IV fluid infused 1,000 02/15/25 18:15 Anesthesia Postop Eval I: Summary Notes Anesthesia Complication No 02/15/25 18:15 Anesthesia Complication Comment: Post-operative progress note Anesthesia: Postop Eval II Evaluation Mental status: Awake Pain Level: 0 nausea: No Vomiting: No
--- NOTE | 2025-02-15 19:57 | PCM.HOSP.N ---
Hospitalist Note Patient refused the liver US secondary to self pay status.
[2025-02-16] VITALS (13 sets, daily range): BP systolic 67–126; BP diastolic 43–86; PULSE 96–118; RESP 16–18; TEMP 36.5–36.9; O2SAT 94–100
[2025-02-16] MEDS: 0.9% Saline Lock 10 ML Syringe IV (00:13)
[2025-02-16] MEDS: Cefazolin 1 GM/50 ML BAG IV ×3 (00:13→16:10)
[2025-02-16] MEDS: 0.9% Normal Saline (1000mL) 1,000 ML 75 ML IV (03:46)
[2025-02-16 08:00] LABS: Hematocrit 27.3 % (40-54); Hemoglobin 9.5 g/dL (13.0-16.5); Immature Granulocytes Count 0.090 X10^3/uL (0.0-0.0); Mean Corp Hgb Conc 34.8 g/dL (32-36); Mean Corpuscular Volume 90.1 fL (80-94); Mean Platelet Vol. 10.6 fl (6.2-12.0); NRBC Flagged by Analyzer 0 % (0-5); POSITIVE DIFFERENTIAL YES; Platelet Count 190 K/mm3 (150-450); RBC Distribution Width CV 12.0 % (11.6-14.6); RBC Distribution Width SD 39.5 fl (35.1-43.9); Red Blood Count 3.03 M/mm3 (4.6-6.2); White Blood Count 16.7 K/mm3 (4.4-11.0)
[2025-02-16 08:03] LABS: Differential Indicated SCAN CRITERIA MET
[2025-02-16 08:41] LABS: Polychromasia 1+
[2025-02-16 09:21] LABS: Anion Gap 9 (5-15); BUN 13 mg/dL (4-19); BUN/Creat Ratio 26.6 RATIO (10-20); Calcium,Total 8.1 mg/dL (7.6-11.0); Carbon Dioxide 26.5 mmol/L (21.0-32.0); Chloride 95 mmol/L (98-108); Estimated Creatinine Clearance 194.58 ml/min (50-250); Glucose 263 mg/dL (70-99); Potassium 4.3 mmol/L (3.3-5.1)
[2025-02-16] MEDS: 0.9% Normal Saline (1000mL) 1,000 ML 999 ML IV (10:07)
[2025-02-16] MEDS: 0.9% Normal Saline (1000mL) 1,000 ML 125 ML IV (11:11)
--- NOTE | 2025-02-16 11:44 | PN_ITS ---
Subjective Subjective Patient seen and examined with his nurse by his bedside. Patient looked very pale and was diaphoretic during my review. Pulse was weak and thready. His mother was by his bedside. HE denied any lightheadedness, palpitations, nausea or vomiting. There was no bleeding from surgical site. Blood sugar was 298. Vitals checked showed BP of 67/43. A bolus of normal saline 1L stat ordered. Objective Data Objective Data Vital Signs: Vital Signs Temp Pulse Resp BP Pulse Ox O2 Del Method O2 Flow Rate 97.7 F L 96 18 82/56 L 99 Nasal Cannula 3 02/16/25 08:16 02/16/25 10:37 02/16/25 08:16 02/16/25 10:39 02/16/25 10:37 02/16/25 10:37 02/16/25 10:37 Oxygen Flow Rate (L/min) 3 Oxygen Delivery Method Nasal Cannula Weight: 174 lb 13.225 oz Body Mass Index (BMI) 28.2 Intake & Output: Intake and Output for Last 24 Hours 02/14/25 02/15/25 02/16/25 23:59 23:59 23:59 Intake Total 1000 / 1000 2800 / 2800 2266.25 / 2266.25 Output Total 2150 / 2150 400 / 400 Balance 1000 / 750 650 / 650 1866.25 / 1866.25 Lab / Micro Data 02/16/25 07:37 02/16/25 07:37 Labs: Laboratory Results - last 24 hr 02/16/25 07:37: WBC 16.7 H, RBC 3.03 L, Hgb 9.5 L, Hct 27.3 L, MCV 90.1, MCH 31.4, MCHC 34.8, RDW Std Deviation 39.5, RDW Coeff of Payton 12.0, Plt Count 190, MPV 10.6, Immature Gran % (Auto) 0.500, Neut % (Auto) 77.2 H, Lymph % (Auto) 7.4 L, [place] % (Auto) 14.4 H, Eos % (Auto) 0.1, Baso % (Auto) 0.4, Absolute Neuts (auto) 12.9 H, Absolute Lymphs (auto) 1.24, Nucleated RBC % 0, Platelet Estimate ADEQUATE, Polychromasia 1+, Sodium 130 L, Potassium 4.3, Chloride 95 L, Carbon Dioxide 26.5, Anion Gap 9, BUN 13, Creatinine 0.48 L, Estim Creat Clear Calc 194.58, Est GFR (MDRD) Non-Af 132, BUN/Creatinine Ratio 26.6 H, Glucose 263 H, Calcium 8.1 02/16/25 10:02: POC Glucose 298 H Radiography Diagnostic Testing: Radiology Impression Hip/Pelvis X-Ray 02/15/25 16:40 IMPRESSION: Intraop fluoroscopy status post ORIF of the left femur, as above. Reading Location: [facility] Physical Exam Const Constitutional Narrative: has underlying MRDD but is able to communicate and answer questions. Patient very pale, frail, weak. Diaphoretic. HEENT normocephalic, head/scalp atraumatic and hearing grossly normal bilaterally Mouth: dry mucous membranes Eyes PERRL and EOMs intact bilaterally Neck supple and no JVD Lymph Lymphatic: no lymphedema noted Resp normal respiratory effort Resp Narrative: Mildly diminished breath sounds bibasilarly. No wheezes or crackles. On 3 L of oxygen by nasal cannula today. Cardio regular rhythm, S1 normal heart sound, S2 normal heart sound and no murmurs Cardio Narrative: tachycardic GI normal to inspection, nondistended, normoactive bowel sounds, soft to palpation and non-tender Extremity normal to inspection, full ROM and no clubbing, cyanosis or edema Extremity Narrative: intact dressing over left hip. No evidence of bleeding at surgical site. Skin General Skin Exam: no breakdown Neuro Neuro Narrative: lethargic. Sensorium / Orientation: awake Motor Exam: general weakness Psych Psych Narrative: flat affect Assessment & Plan Assessment/Plan (1) Closed fracture of left hip: (2) Fall: PLAN: Plan #Closed left hip fracture due to mechanical fall * Patient fell after his leg got caught under the freezer. Imaging shows a left comminuted femoral neck fracture * patient had left hip ORIF on 02/15/2025. POD 1. * Orthopedics on board. * P.o. oxycodone and IV morphine as needed for pain. Hold off on Tylenol due to elevated liver enzymes * PT OT consult. Fall precautions. * Chest x-ray did not show any acute cardiopulmonary pathology. #Acute hypotension * patient noted to be markedly hypotensive this morning. Patient left PACU at ~ 18:30 per the chart. HE was tachycardic at that time, with HR In the 120s. * HR remained in the 110s-130s overnight into this morning. His BP was markedly low at 67/43 * patient moved from his chair into his bed. Given a bolus of normal saline 1L x 1. BP came up to 96/66 * will continue with IVF NS @ 150cc/hr x 2 bags overnight. I expect that his tachyardia will also improve as the BP improves with hydration #Elevated liver enzymes: * Total bilirubin is elevated as well as AST and ALT.liver enzymes have started trending downwards. Hepatitis panel was negative. Will order liver ultrasound. * It appears that it was mainly an indirect hyperbilirubinemia. * There does not appear to be any evidence of hemolysis though. * liver USG pending. Patient refused as he would have to be self pay. * #Leukocytosis: WBC 16.7. Likely reactive. No clear evidence of infection. Will monitor and trend. #Hyponatremia: Sodium is 130 today. Likely due to dehydration. Remain hydrated with IV fluids as above. #History of prediabetes with hyperglycemia: Blood sugar today is 298. Started on insulin sliding scale. Accu-Cheks ACHS. #History of spherocytosis: s/p remote splenectomy. Stable DVT prophylaxis: PO eliquis 2.5mg bid. DC lovenox CODE STATUS: full code Charges/Coding Visit Charges Inpatient E&M: 18769 Subs Hosp L3
--- NOTE | 2025-02-16 11:54 | PN.ORTHO_ITS ---
Subjective Subjective Patient is a 44-year-old male postop day 1 status post left IM nail with Dr. Gan 02/15/2025. Patient resting comfortably in bed. not in acute distress. States taking Tylenol and oxycodone as needed and ice help to relieve pain. Patient has been up with therapy. Walking with the assit of a walker. Afebrile, no chest pain, shortness of breath, negative calf pain/ erythema, and no other signs of DVT. Objective Data Objective Data Vital Signs: Vital Signs Temp Pulse Resp BP Pulse Ox O2 Del Method O2 Flow Rate 97.7 F L 96 18 82/56 L 99 Nasal Cannula 3 02/16/25 08:16 02/16/25 10:37 02/16/25 08:16 02/16/25 10:39 02/16/25 10:37 02/16/25 10:37 02/16/25 10:37 Oxygen Flow Rate (L/min) 3 Oxygen Delivery Method Nasal Cannula Weight: 79.3 kg Body Mass Index (BMI) 28.2 Intake & Output: Intake and Output for Last 24 Hours 02/14/25 02/15/25 02/16/25 23:59 23:59 23:59 Intake Total 1000 / 1000 2800 / 2800 2266.25 / 2266.25 Output Total 2150 / 2150 400 / 400 Balance 1000 / 750 650 / 650 1866.25 / 1866.25 Lab / Micro Data 02/16/25 07:37 02/16/25 07:37 Labs: Laboratory Results - last 24 hr 02/16/25 07:37: WBC 16.7 H, RBC 3.03 L, Hgb 9.5 L, Hct 27.3 L, MCV 90.1, MCH 31.4, MCHC 34.8, RDW Std Deviation 39.5, RDW Coeff of Payton 12.0, Plt Count 190, MPV 10.6, Immature Gran % (Auto) 0.500, Neut % (Auto) 77.2 H, Lymph % (Auto) 7.4 L, [place] % (Auto) 14.4 H, Eos % (Auto) 0.1, Baso % (Auto) 0.4, Absolute Neuts (auto) 12.9 H, Absolute Lymphs (auto) 1.24, Nucleated RBC % 0, Platelet Estimate ADEQUATE, Polychromasia 1+, Sodium 130 L, Potassium 4.3, Chloride 95 L, Carbon Dioxide 26.5, Anion Gap 9, BUN 13, Creatinine 0.48 L, Estim Creat Clear Calc 194.58, Est GFR (MDRD) Non-Af 132, BUN/Creatinine Ratio 26.6 H, Glucose 263 H, Calcium 8.1 02/16/25 10:02: POC Glucose 298 H Radiography Diagnostic Testing: Radiology Impression Hip/Pelvis X-Ray 02/15/25 16:40 IMPRESSION: Intraop fluoroscopy status post ORIF of the left femur, as above. Reading Location: [id number] Physical Exam Narrative Patient resting comfortably in bed No signs of acute distress Satting well on room air Limb is warm to touch, Sensation intact throughout entire lower extremity, including saphenous, sural, superficial and deep peroneal, and tibial distribution. DP/PT pulses bounding. wiggles toes Dressing clear dry intact Calf nontender to palpation, no erythema, no edema. Negative Homans Assessment & Plan Assessment/Plan (1) Closed fracture of left hip: PLAN: Plan 1. Will continue PT today. Weightbearing as tolerated with a walker 2. plan for discharge ultimately per primary. Due to patient living in [place], [place] in he may benefit from another day in the hospital before planning to return home. 3. Patient will follow up for post op appointment 2 weeks in the office this will need to be arranged. 4. If patient does go home he will need arrangement for outpatient physical therapy. 5. WBC 16.7 acute reactive leukocytosis: secondary to pre operative decadron. no acute systemic signs of infection. will monitor, and likely self resolve. 6. H/H 9.5/27.3: post operavtive anemia secondary to acute blood loss intraoperatively. Patient is asymptomatic at this time. No intraoperative complications. will continue to monitor. no acute interventions. 7. DVT prophylaxis : Lovenox x 4 weeks versus Eliquis 2.5 mg p.o. twice daily for DVT prophylaxis. If switching to oral Eliquis this will be a duration of 2 weeks followed by 2 weeks of aspirin 81 mg twice daily 8. Pain control: patient instructed to take tylenol 500mg 2 tablets TID. and oxycodone 1-2 tablets every 4-6 hours only as needed for pain control. 9. ok to remove post op dressing. post op day 5 10. ortho will continue to follow
--- NOTE | 2025-02-16 12:07 | NURSING ---
This RN went into pt room around 0800. Pt resting in bed with mother at bedside. Vitals stable. Therapy got pt up to bathroom and chair later in the morning and therapy reported dizziness when up. Pt placed in chair. BP dropped to 98/60, HR [address] Veras notified. Dr Veras and this RN went to pt room to see pt. Pt diaphoretic, pale. Blood sugar was 289. 1L IV fluid bolus ordered, followed by NS at 125/hr for 1.5L. This RN rechecked BP once pt back to bed and BP was 60s/40s. Dr Veras notified again and instructed this RN to recheck BP one hour after IVF bolus completed. Pt resting in bed, mother at bedside. This RN rechecked pt's BP at 1200, after IVF bolus, and BP was 96/[address] Veras notified. NS running at 125/hour.
[2025-02-16 13:15] LABS: AST(SGOT) 55 U/L (<=37); Alanine Aminotransfer ALT/SGPT 107 U/L (<=46); Albumin, Serum 3.1 g/dL (3.5-5.0); Alkaline Phosphatase 93 U/L (40-129); Bilirubin, Direct 0.81 mg/dL (0.00-0.30); Globulin 3.6 g/dL (2.2-4.2)
[2025-02-16] MEDS: 0.9% Normal Saline (1000mL) 1,000 ML 150 ML IV (17:53)
[2025-02-16] MEDS: Senna/Docusate Sodium 1 Tablet 2 TABLET PO (21:05)
[2025-02-17] VITALS (8 sets, daily range): BP systolic 104–125; BP diastolic 64–78; PULSE 104–118; RESP 16–18; TEMP 36.7–37.3; O2SAT 95–98
[2025-02-17] MEDS: 0.9% Normal Saline (1000mL) 1,000 ML 150 ML IV (00:35)
[2025-02-17 04:24] LABS: Hematocrit 22.3 % (40-54); Hemoglobin 7.7 g/dL (13.0-16.5); Immature Granulocytes Count 0.070 X10^3/uL (0.0-0.0); Mean Corp Hgb Conc 34.5 g/dL (32-36); Mean Corpuscular Volume 90.3 fL (80-94); Mean Platelet Vol. 10.3 fl (6.2-12.0); NRBC Flagged by Analyzer 0 % (0-5); POSITIVE DIFFERENTIAL YES; Platelet Count 183 K/mm3 (150-450); RBC Distribution Width CV 12.2 % (11.6-14.6); RBC Distribution Width SD 39.0 fl (35.1-43.9); Red Blood Count 2.47 M/mm3 (4.6-6.2); White Blood Count 15.1 K/mm3 (4.4-11.0)
[2025-02-17 04:33] LABS: Differential Indicated SCAN CRITERIA MET
[2025-02-17 04:42] LABS: Anion Gap 6 (5-15); BUN 13 mg/dL (4-19); BUN/Creat Ratio 33.8 RATIO (10-20); Calcium,Total 7.9 mg/dL (7.6-11.0); Carbon Dioxide 29.1 mmol/L (21.0-32.0); Chloride 99 mmol/L (98-108); Estimated Creatinine Clearance 239.49 ml/min (50-250); Glucose 210 mg/dL (70-99); Potassium 3.9 mmol/L (3.3-5.1)
[2025-02-17 05:20] LABS: Differential Comment SCANNED
--- NOTE | 2025-02-17 08:43 | PCM.PN.ORT ---
Subjective Subjective Patient is a 44-year-old male PMH spherocytosis (splenectomy at age 8), MRDD, postop day 2 status post left IM nail with Dr. Gan 02/15/2025. Patient resting comfortably in bed. not in acute distress. States taking Tylenol and oxycodone as needed and ice help to relieve pain. Patient has been up with therapy. Walking with the assit of a walker. Afebrile, no chest pain, shortness of breath, negative calf pain/ erythema, and no other signs of DVT. patient still requiring NC 2 L . H/H has dropped to 7.7 today . he remains tachycardic. Objective Data Objective Data Vital Signs: Vital Signs Temp Pulse Resp BP Pulse Ox O2 Del Method O2 Flow Rate 98.2 F 104 H 16 104/64 95 Nasal Cannula 2 02/17/25 03:08 02/17/25 03:08 02/17/25 03:08 02/17/25 03:08 02/17/25 08:24 02/17/25 08:24 02/17/25 08:24 Oxygen Flow Rate (L/min) 2 Oxygen Delivery Method Nasal Cannula Weight: 79.3 kg Body Mass Index (BMI) 28.2 Intake & Output: Intake and Output for Last 24 Hours 02/15/25 02/16/25 02/17/25 23:59 23:59 23:59 Intake Total 2800 / 2800 3605.00 / 3605.00 2150 / 2150 Output Total 2150 / 2150 1425 / 1425 Balance 650 / 650 2180.00 / 2180.00 2150 / 2150 Lab / Micro Data 02/17/25 04:08 02/17/25 04:08 Labs: Laboratory Results - last 24 hr 02/16/25 07:37: Sodium 130 L, Potassium 4.3, Chloride 95 L, Carbon Dioxide 26.5, Anion Gap 9, BUN 13, Creatinine 0.48 L, Estim Creat Clear Calc 194.58, Est GFR (MDRD) Non-Af 132, BUN/Creatinine Ratio 26.6 H, Glucose 263 H, Calcium 8.1, Total Bilirubin 2.11 H, Direct Bilirubin 0.81 H, AST 55 H, ALT 107 H, Alkaline Phosphatase 93, Total Protein 6.7, Albumin 3.1 L, Globulin 3.6 02/16/25 10:02: POC Glucose 298 H 02/16/25 16:09: POC Glucose 315 H 02/16/25 21:08: POC Glucose 239 H 02/17/25 04:08: WBC 15.1 H, RBC 2.47 L, Hgb 7.7 L, Hct 22.3 L, MCV 90.3, MCH 31.2, MCHC 34.5, RDW Std Deviation 39.0, RDW Coeff of Payton 12.2, Plt Count 183, MPV 10.3, Immature Gran % (Auto) 0.500, Neut % (Auto) 65.4, Lymph % (Auto) 15.1 L, Power % (Auto) 15.0 H, Eos % (Auto) 3.3, Baso % (Auto) 0.7, Absolute Neuts (auto) 9.9 H, Absolute Lymphs (auto) 2.27, Nucleated RBC % 0, Differential Comment SCANNED, Sodium 134, Potassium 3.9, Chloride 99, Carbon Dioxide 29.1, Anion Gap 6, BUN 13, Creatinine 0.39 L, Estim Creat Clear Calc 239.49, Est GFR (MDRD) Non-Af 140, BUN/Creatinine Ratio 33.8 H, Glucose 210 H, Calcium 7.9 02/17/25 06:39: POC Glucose 220 H Physical Exam Narrative Patient resting comfortably in bed No signs of acute distress 2 L NC denies chest pain Limb is warm to touch, Sensation intact throughout entire lower extremity, including saphenous, sural, superficial and deep peroneal, and tibial distribution. DP/PT pulses bounding. wiggles toes Dressing clear dry intact Calf nontender to palpation, no erythema, no edema. Negative Homans Assessment & Plan Assessment/Plan (1) Closed fracture of left hip: PLAN: 1. Will continue PT today. Weightbearing as tolerated with a walker 2. plan for discharge ultimately per primary. orthopaedically is stable, however is still requiring O2 and H/H did drop this AM. 3. Patient will follow up for post op appointment 2 weeks in the office this will need to be arranged. 4. If patient does go home he will need arrangement for outpatient physical therapy. 5. WBC 15.1 acute reactive leukocytosis: secondary to pre operative decadron. no acute systemic signs of infection. will monitor, and likely self resolve. 6. H/H 7.7/22.3: post operavtive anemia. he is symptomatic at this time with tachycardia, and hypotension. transfuse per primary. 7. tachycardia: consider CTA to rule out PE. spoke with hospitalist today. patient has been tachycardic since admission with low O2 sats , and yesterday some hypotension. tachy may also be due to anemia, however in the setting of spherocytosis and delayed presentation of hip fracture, it is beneficial to rule out PE at this time. 8. DVT prophylaxis : Lovenox x 4 weeks versus Eliquis 2.5 mg p.o. twice daily for DVT prophylaxis. If switching to oral Eliquis this will be a duration of 2 weeks followed by 2 weeks of aspirin 81 mg twice daily 9. Pain control: patient instructed to take tylenol 500mg 2 tablets TID. and oxycodone 1-2 tablets every 4-6 hours only as needed for pain control. 10. ok to remove post op dressing. post op day 5 11. Ortho to continue to follow
[2025-02-17 08:45] LABS: AST(SGOT) 27 U/L (<=37); Alanine Aminotransfer ALT/SGPT 59 U/L (<=46); Albumin, Serum 2.8 g/dL (3.5-5.0); Alkaline Phosphatase 80 U/L (40-129); Bilirubin, Direct 0.67 mg/dL (0.00-0.30); Globulin 3.1 g/dL (2.2-4.2)
[2025-02-17] MEDS: APIXABAN 2.5 MG TABLET (WCH) PO (09:20)
[2025-02-17] MEDS: Senna/Docusate Sodium 1 Tablet 2 TABLET PO (09:20)
--- NOTE | 2025-02-17 11:00 | CT_ITS ---
EXAM: CT Angiography Chest Without and With Intravenous Contrast CLINICAL INDICATION: SHORTNESS OF BREATH TECHNIQUE: Axial computed tomographic angiography images of the chest without and with intravenous contrast. This CT exam was performed using one or more of the following dose reduction techniques: automated exposure control, adjustment of the mA and/or kV according to patient size, and/or use of iterative reconstruction technique. MIP reconstructed images were created and reviewed. COMPARISON: No relevant prior studies available. FINDINGS: PULMONARY ARTERIES: Multiple bilateral pulmonary emboli. Mild heart strain. AORTA: No acute findings. No thoracic aortic aneurysm. LUNGS AND PLEURAL SPACES: Lung emphysema/COPD. Left basilar atelectasis or pneumonia. No mass. No significant effusion. HEART: Unremarkable. No cardiomegaly. No significant pericardial effusion. No evidence of RV dysfunction. BONES/JOINTS: No acute fracture. No dislocation. SOFT TISSUES: Unremarkable. LYMPH NODES: Unremarkable. No enlarged lymph nodes. CT/CTA Chest W/WO Contrast IMPRESSION: 1. Multiple bilateral pulmonary emboli. Mild heart strain. 2. Lung emphysema/COPD. Left basilar atelectasis or pneumonia. Red Alert: Multiple bilateral pulmonary emboli. The critical information above was relayed directly by me by telephone to Agustina Veras on 02/17/2025 at 11:36 am with readback verification. Reading Location: [id number]
--- NOTE | 2025-02-17 11:05 | PN_ITS ---
Subjective Subjective Patient seen and examined. His mother was by his bedside. Patient said he had no active complaints. However, he still remains tachycardic. His BP has improved and is 120/68 today. However, HR still remains in the 110s-120s. His Hb has also dropped to 7.7 today, down from 9.5 yesterday. Objective Data Objective Data Vital Signs: Vital Signs Temp Pulse Resp BP Pulse Ox O2 Del Method O2 Flow Rate 98.0 F 118 H 18 120/68 97 Nasal Cannula 2 02/17/25 09:10 02/17/25 09:10 02/17/25 09:10 02/17/25 09:10 02/17/25 09:10 02/17/25 09:10 02/17/25 09:10 Oxygen Flow Rate (L/min) 2 Oxygen Delivery Method Nasal Cannula Weight: 174 lb 13.225 oz Body Mass Index (BMI) 28.2 Intake & Output: Intake and Output for Last 24 Hours 02/15/25 02/16/25 02/17/25 23:59 23:59 23:59 Intake Total 2800 / 2800 3605.00 / 3605.00 2150 / 2150 Output Total 2150 / 2150 1425 / 1425 350 / 350 Balance 650 / 650 2180.00 / 2180.00 1800 / 1800 Lab / Micro Data 02/17/25 04:08 02/17/25 04:08 Labs: Laboratory Results - last 24 hr 02/14/25 14:14: Crossmatch See Detail 02/16/25 07:37: Total Bilirubin 2.11 H, Direct Bilirubin 0.81 H, AST 55 H, ALT 107 H, Alkaline Phosphatase 93, Total Protein 6.7, Albumin 3.1 L, Globulin 3.6 02/16/25 16:09: POC Glucose 315 H 02/16/25 21:08: POC Glucose 239 H 02/17/25 04:08: WBC 15.1 H, RBC 2.47 L, Hgb 7.7 L, Hct 22.3 L, MCV 90.3, MCH 31.2, MCHC 34.5, RDW Std Deviation 39.0, RDW Coeff of Payton 12.2, Plt Count 183, MPV 10.3, Immature Gran % (Auto) 0.500, Neut % (Auto) 65.4, Lymph % (Auto) 15.1 L, [place] % (Auto) 15.0 H, Eos % (Auto) 3.3, Baso % (Auto) 0.7, Absolute Neuts (auto) 9.9 H, Absolute Lymphs (auto) 2.27, Nucleated RBC % 0, Differential Comment SCANNED, Sodium 134, Potassium 3.9, Chloride 99, Carbon Dioxide 29.1, Anion Gap 6, BUN 13, Creatinine 0.39 L, Estim Creat Clear Calc 239.49, Est GFR (MDRD) Non-Af 140, BUN/Creatinine Ratio 33.8 H, Glucose 210 H, Calcium 7.9, T otal Bilirubin 1.47 H, Direct Bilirubin 0.67 H, AST 27, ALT 59 H, Alkaline Phosphatase 80, Total Protein 5.9, Albumin 2.8 L, Globulin 3.1 02/17/25 06:39: POC Glucose 220 H Physical Exam Const alert and no apparent distress Constitutional Narrative: has underlying MRDD but is able to communicate and answer questions. Patient still looks pale, weak and sweaty. General Appearance: cooperative HEENT normocephalic, head/scalp atraumatic and hearing grossly normal bilaterally Eyes PERRL and EOMs intact bilaterally Neck no lymphadenopathy, supple and no JVD Lymph Lymphatic: no lymphedema noted Resp normal respiratory effort Resp Narrative: Mildly diminished breath sounds bibasilarly. No wheezes or crackles. On 2 L of oxygen by nasal cannula today. Cardio regular rhythm, S1 normal heart sound, S2 normal heart sound and no murmurs Cardio Narrative: tachycardic; sinus tachycardia GI normal to inspection, nondistended, normoactive bowel sounds, soft to palpation and non-tender Extremity normal to inspection Extremity Narrative: intact dressing over left hip. No evidence of bleeding at surgical site. Skin General Skin Exam: no breakdown Neuro moves all extremities Neuro Narrative: lethargic. Sensorium / Orientation: awake Motor Exam: strength 5/5 throughout and general weakness Psych Psych Narrative: flat affect Mood & Affect: flat affect Assessment & Plan Assessment/Plan (1) Closed fracture of left hip: (2) Fall: PLAN: Plan #Closed left hip fracture due to mechanical fall * Patient fell after his leg got caught under the freezer. Imaging shows a left comminuted femoral neck fracture * patient had left hip ORIF on 02/15/2025. POD 2. * Orthopedics on board. * P.o. oxycodone and IV morphine as needed for pain. Hold off on Tylenol due to elevated liver enzymes * PT OT consult. Fall precautions. * Chest x-ray did not show any acute cardiopulmonary pathology. #Acute hypotension and sinus tachcyardia. * hypotension has resolved after hydration. Patient however has remained tachycardic, with HR in the 110s-120s. * I discussed with the ortho PA today. It turns out patient had a lapse of about 2 days after the fracture before coming in to the hospital as he wnt to a chiropractor in [place]. He is therefore at increased risk of PE * will therefore order stat CTA chest to rule out a PE; I was informed by nursing that radiology called that CTA chest showed multiple bilateral PEs * will therefore start on heparin drip. Transferred to PCU already this morning. * #Acute anemia due to acute blood loss from surgery. * Hb is 7.7. Hb was 12.7 on admission and was 9.5 yesterday * may be due to acute blood loss from surgery. * will transfuse with one unit of one unit of PRBC. * #acute bilateral submassive PE * As stated above patient noted to be tachycardic right from PACU after he had surgery on 02/15/2025. He remained tachycardic overnight and into the morning of 02/16/2025. At time of review on 02/16/2025, patient was pale and tachycardic with weak pulse. Blood pressure check was 67/43. He had not received any fluids after the surgery and so it was thought that his hypotension and tachycardia was due to volume depletion. He was therefore aggressively hydrated with IV fluids. His blood pressure did improve and was in the 120 systolic this morning. However tachycardia persisted and as stated above in light of patient having been at home with a fracture for about 2 days before coming in he is at high risk of PE. Stat CT of the chest was ordered this morning and showed multiple bilateral pulmonary emboli with mild heart strain and lung emphysema and left basilar atelectasis or pneumonia, with no evidence of RV dysfunction. * Will start on heparin drip. Check BNP and troponin series. 2D echo also ordered. * Patient transferred to PCU as stated above. * I discussed with Dr. Hawley on phone about whether patient is a candidate for revascularization therapy. He is going to review the CT to determine if patient would be a suitable candidate. * Dr Hawley reviewed the imaging and stated that he did not think the patient was a candidate for thrombectomy as hte blood clots were subsegmental. * I consulted pulmonology. I spoke to Dr. Solomon Urbina of telemetry critical care at 3:25pm. He requested for an echo. I explained to him an echo had already been ordered but due to it being Wednesday and the timing, echo could not be done until Wednesday. He stated he wanted patient transferred for an echo. I explained to him that it would be difficult to transfer the patient to a tertiary center just for a 2D echo in light of bed availability and challenges we have had with transfer. * I spoke to Dr. Bee the security tech on-call to inquire about a bedside echo or to see if the manufacturing production technician could be called in for an echo. Upon discussing patient's presentation and current vitals with him with patient being on 2 L of oxygen and saturating at 98%, blood pressure 117/78 at time of our discussion, respiratory rate of 16, HR of 118 (trending down slightly), proBNP being elevated at 2044, initial troponin of 37 and delta troponin going to 34, CT scan finding showing no evidence of right ventricular strain and my having discussed the patient already with Dr. Hawley who reviewed patient's images and said patient was not a candidate for catheter directed thrombectomy, cardiology did not think that the echo needed to be done stat as patient was hemodynamically stable and tachycardia was improving. Per cardiology echo can be done on Wednesday. * #Elevated liver enzymes: * Total bilirubin is elevated as well as AST and ALT. Liver enzymes have started trending downwards. Hepatitis panel was negative. * It appears that it was mainly an indirect hyperbilirubinemia. * There does not appear to be any evidence of hemolysis though. * Patient refused liver [facility] as he would have to be self pay. * #Leukocytosis: WBC today is down to 15.1, down from 16.7 yesterday. Likely reactive. No clear evidence of infection. Will monitor and trend. #Hyponatremia: resolved. #History of prediabetes with hyperglycemia: Started on insulin sliding scale. Accu-Cheks ACHS. #History of spherocytosis: s/p remote splenectomy. Stable DVT prophylaxis: Started on heparin drip in light of the PE. CODE STATUS: full code Charges/Coding Visit Charges Inpatient E&M: 85033 Subs Hosp L3
--- NOTE | 2025-02-17 11:47 | ECHOD_ITS ---
Reason For Study Reason For Study: EMBOLI Procedure This was a 2D Doppler, Color Flow transthoracic echocardiogram. The study was technically difficult. Definity deferred due to pulmonary pressures. Exam performed portable in patient room. Left Ventricle Normal LV size. Left ventricular systolic function is normal. The left ventricular ejection fraction is 60 %. No regional wall motion abnormalities noted. Right Ventricle Normal RV size. Atria Normal left atrium. Normal right atrium. Mitral Valve Normal mitral valve. Tricuspid Valve Normal tricuspid valve. Moderately severe (3+) tricuspid valve insufficiency. Pulmonary artery systolic pressure is 79 mmHg. Severe pulmonary hypertension. Aortic Valve The aortic valve is not well visualized. Pulmonic Valve Normal pulmonic valve. Great Vessels Normal aortic root. The pulmonary artery is normal size. Inferior vena cava collapse with respiration. Pericardium/Pleural No pericardial effusion. MMode/2D Measurements & Calculations LVOT diam: 2.0 cm LA dimension(2D): 3.5 cm LVOT area: 3.2 cm2 Time Measurements MV dec time: 0.18 sec Doppler Measurements & Calculations MV E max nick: 71.7 cm/sec Lat Peak E' Nick: 16.5 cm/sec Med Peak E' Nick: 13.8 cm/sec MV A max nick: 56.6 cm/sec E/E' lat: 4.4 E/E' med: 5.2 MV E/A: 1.3 MV V2 max: 76.6 cm/sec MV dec slope: 444.8 cm/sec2 Ao V2 max: 122.8 cm/sec MV max P.4 mmHg Ao max P.0 mmHg MV V2 mean: 60.5 cm/sec Ao V2 mean: 89.8 cm/sec MV mean P.5 mmHg Ao mean P.6 mmHg MV V2 VTI: 17.2 cm Ao V2 VTI: 23.3 cm MVA(VTI): 4.4 cm2 AV (velocity ratio): 1.0 SKY(I,D): 3.3 cm2 SKY(V,D): 3.2 cm2 LV V1 max: 121.6 cm/sec SV(LVOT): 75.9 ml PA V2 max: 133.3 cm/sec LV V1 max P.9 mmHg PA V2 mean: 96.7 cm/sec LV V1 mean P.3 mmHg LV V1 mean: 84.6 cm/sec LV V1 VTI: 23.4 cm TR max nick: 436.1 cm/sec TR max P.1 mmHg ECHO/Echo Complete Interpretation Summary Normal LV size. Left ventricular systolic function is normal. The left ventricular ejection fraction is 60 %. Pulmonary artery systolic pressure is 79 mmHg. Severe pulmonary hypertension. Contrast injection was performed. Ordering Physician: Agustina Veras Referring Physician: EDWINA PCP Performed By: Ashanti Govea RCS
[2025-02-17 12:21] LABS: Prothrombin Time (Protime)PT. 14.0 SECONDS (11.7-14.9)
[2025-02-17 12:22] LABS: Partial Thromboplast Time 25.4 Seconds (24.1-36.2)
[2025-02-17] MEDS: HEPARIN/D5w 25,000 UNITS 25,000 UNITS/250 ML IV.SOLN. 11.9 UNITS CONT INF (12:26)
[2025-02-17 12:40] LABS: Troponin T High Sensitivity 37 ng/L (<=22)
[2025-02-17 12:41] LABS: Pro- Brain NATRIURETIC PEPTIDE 2045 pg/mL (<=450)
[2025-02-17 14:28] LABS: Troponin T High Sens 2 HR 34 ng/L (<=22)
--- NOTE | 2025-02-17 15:48 | PCMCONS.TICU ---
HPI Consult Data Date of Consult: 02/17/25 HPI Narrative HPI Narrative: BONITA BLAKE, is a 44 M who presents [facility] Home Medications ?Medication ?Instructions ?Recorded ?Last Taken ?Type sertraline 100 mg tablet 200 mg PO DAILY mood stabilizer 02/14/25 Unknown History Allergy/AdvReac Type Severity Reaction Status Date / Time No Known Allergies Allergy Verified 02/14/25 09:26 Social History Smoking Status: Never smoker Objective Data Objective Data Vital Signs: Vital Signs Last response Temperature 36.8 C 02/17/25 14:53 Temperature Source Oral 02/17/25 14:53 Pulse Rate 108 H 02/17/25 14:53 Pulse Strength Normal (2+) 02/17/25 10:00 Respiratory Rate 16 02/17/25 14:53 Respiratory Effort Normal, Non-Labored 02/17/25 15:40 Respiratory Depth Normal 02/17/25 15:40 Respiratory Pattern Normal 02/17/25 15:40 Blood Pressure 117/78 02/17/25 14:53 Blood Pressure Mean 91 02/17/25 14:53 Blood Pressure Source Monitor 02/17/25 14:53 Blood Pressure Position Semi-Fowlers 02/17/25 14:53 Blood Pressure Location Left Arm 02/17/25 14:53 Baseline BP 127/76 02/15/25 18:58 Pulse Ox 98 02/17/25 14:53 Oxygen Delivery Method Nasal Cannula 02/17/25 15:40 Oxygen Flow Rate (L/min) 2 02/17/25 15:40 I&O: I&O Last 24 Hours 02/16/25 02/17/25 02/17/25 23:59 11:59 23:59 Intake Total 1338.75 / 3605.00 2150 / 2150 0 / 2150 Output Total 1025 / 1425 350 / 850 500 / 850 Balance 313.75 / 2180.00 1800 / 1300 -500 / 1300 I&O: Total Stay 02/14/25 09:21 thru 02/17/25 14:53 Intake Total 9555.00 Output Total 4425 Balance 5130.00 Current Meds Ordered / Administered: Current meds ordered / Administered Generic Name Dose Route Start Last Admin Trade Name Freq PRN Reason Stop Dose Admin Calcium Carbonate 500 mg 02/16/25 08:00 02/17/25 11:29 Calcium Carbonate 500 Mg Tablet PO 500 mg TIDCM KATIA Administration Heparin Sodium (Porcine) 0 unit 02/17/25 11:41 Heparin Nomogram Adjustment 5,000 Unit/Ml Vial IV UD PRN Dose Adjustment Protocol Sodium Chloride 250 mls @ 15 mls/hr 02/14/25 12:42 IV .[id number] PRN Saline Flush Sodium Chloride 250 mls @ 15 mls/hr 02/14/25 12:42 IV .[id number] PRN Additional IVPB Infusion Heparin Sodium/Dextrose 25,000 units in 250 mls @ 11.895 mls/hr 02/17/25 11:45 02/17/25 12:26 CONT INF 15 unit/kg/hr .Q21H2M KATIA 11.9 mls/hr Administration Protocol 15 UNIT/KG/HR Insulin Human Lispro 0 unit 02/16/25 11:00 02/17/25 11:29 Insulin Lispro 100 Unit/Ml Insuln.Pen SC 1 units ACHS KATIA Administration Protocol Morphine Sulfate 2 - 4 mg 02/14/25 12:55 02/15/25 10:40 Morphine 2 Mg/Ml Syringe IV 2 mg Q3H PRN PRN Administration Pain Score 6-10 Ondansetron HCl 4 mg 02/14/25 12:53 Ondansetron 4 Mg/2 Ml Vial IV Q8H PRN PRN NAUSEA/VOMITING Oxycodone HCl 5 mg 02/14/25 12:55 02/17/25 11:36 Oxycodone 5 Mg Tablet PO 5 mg Q4H PRN PRN Administration Pain Score 4-10 Senna/Docusate Sodium 2 tablet 02/14/25 22:00 02/17/25 09:20 Senna/Docusate Sodium 1 Tablet PO 2 tablet BID KATIA Administration Sertraline HCl 200 mg 02/16/25 22:00 02/16/25 21:05 Sertraline 100 Mg Tablet PO 200 mg QHS KATIA Administration Sodium Chloride 10 - 40 ml 02/14/25 12:42 02/16/25 00:13 0.9% Saline Lock 10 Ml Syringe IV 10 ml UD PRN Administration SALINE FLUSH Lab / Micro Data 02/17/25 04:08 02/17/25 04:08 Labs: Laboratory Results - last 24 hr 02/14/25 14:14: Crossmatch See Detail 02/16/25 16:09: POC Glucose 315 H 02/16/25 21:08: POC Glucose 239 H 02/17/25 04:08: WBC 15.1 H, RBC 2.47 L, Hgb 7.7 L, Hct 22.3 L, MCV 90.3, MCH 31.2, MCHC 34.5, RDW Std Deviation 39.0, RDW Coeff of Payton 12.2, Plt Count 183, MPV 10.3, Immature Gran % (Auto) 0.500, Neut % (Auto) 65.4, Lymph % (Auto) 15.1 L, [place] % (Auto) 15.0 H, Eos % (Auto) 3.3, Baso % (Auto) 0.7, Absolute Neuts (auto) 9.9 H, Absolute Lymphs (auto) 2.27, Nucleated RBC % 0, Differential Comment SCANNED, Sodium 134, Potassium 3.9, Chloride 99, Carbon Dioxide 29.1, Anion Gap 6, BUN 13, Creatinine 0.39 L, Estim Creat Clear Calc 239.49, Est GFR (MDRD) Non-Af 140, BUN/Creatinine Ratio 33.8 H, Glucose 210 H, Calcium 7.9, Total Bilirubin 1.47 H, Direct Bilirubin 0.67 H, AST 27, ALT 59 H, Alkaline Phosphatase 80, Total Protein 5.9, Albumin 2.8 L, Globulin 3.1 02/17/25 06:39: POC Glucose 220 H 02/17/25 11:27: POC Glucose 211 H 02/17/25 12:03: PT 14.0, INR 1.1, APTT 25.4, Troponin T High Sens 37 H, NT pro BNP II 2044 H 02/17/25 14:00: Troponin T Hi Sens 2 Hr 34 H Imaging Radiology Impression Chest CTA 02/17/25 11:00 IMPRESSION: 1. Multiple bilateral pulmonary emboli. Mild heart strain. 2. Lung emphysema/COPD. Left basilar atelectasis or pneumonia. Red Alert: Multiple bilateral pulmonary emboli. The critical information above was relayed directly by me by telephone to Agustina Veras on 02/17/2025 at 11:36 am with readback verification. Reading Location: [facility] Assessment and Plan . Assessment and plan: HPI 44 yo male non-smoker admitted 02/14/25 w/ femoral neck fracture after GLF at home 0n 02/13/25. Imaging revealed femoral neck fracture - admitted and orthopedic surgery consultation obtained. On 02/15/25 he underwent uncomplicated IM nail placement using GETA. Postoperatively, noted persistent tachycardia w/ HR 105-125 sustained despite volume expansion and analgesia. On 02/16/25 noted diaphoresis and hypotension requiring IVF bolus w/ improved BP. Above prompted CTA chest which was performed 02/17/25 am - noted bilateral segmental and subsegmental emboli - no obvious large central thrombi. Report notes mild heart strain w/o further elaboration. On my review, it appears that the RV:LV ratio is a bit increased. Subsequently, IV UFH has been initiated w/o bolus. Lab reveals modest elevation troponin and significantly elevated p-BNP. BP is WNL - persistent tachycardia 100-110 BPM. He is breathing O2 2 LPM comfortably at rest. He is not very forthcoming, but is largely w/o complaints and appears in NAD. I have been told that TTE is not currently available. EXAM GEN NAD VS as above HEENT O2 N/C NECK no obvious JVD COR tachy, reg CHEST CTA ABD soft EXT minimal edema SKIN w/d GONZALEZ NF ASSESSMENT/RECOMMENDATION Young male admitted w/ acute femoral neck fracture requiring operative repair 02/15/25. He has subsequently experienced persistent tachycardia as well as an episode of diaphoresis and hypotension, improved w/ IVF. CTA subsequently has revealed extensive PTED w bilateral segmental filling defects. There is a suggestion of increased RV on CT. Cardiac biomarkers are elevated as well. IV UFH has been initiated. At this point, he appears to be intermediate risk for worsening or decompensation, given persistent tachycardia and elevated biomarkers. RV function possibly compromised based on CT findings. I believe TTE w/ assessment of RV size and function would be very important to further assess risk for worsening or decompensation and also better assess whether more aggressive treatment would be indicated at this time. Unfortunately, multiple inquiries have been made, and it appears that echocardiography is not available at this facility until 02/19/25. I would continue IV UFH for now w/ aggressive attempts to get PTT therapeutic GUCCI. I would also recommend transfer to a facility w/ access to more urgent echocardiography in order to further assess the RV size and function and better classify his risk for worsening or decompensation. I also believe he would benefit from being at a tertiary facility w/ availability of additional treatment modalities such as catheter-directed thrombolysis or mechanical extraction if he were to deteriorate. Long d/w NOK at regarding current condition, treatment, and rationale for further diagnostics. Critical Care Time: 60 minutes The entirety of this encounter was done via Telemedicine
[2025-02-17 16:45] LABS: Troponin T High Sens 4 HR 29 ng/L (<=22)
[2025-02-17 18:24] LABS: Partial Thromboplast Time 38.3 Seconds (24.1-36.2)
[2025-02-17] MEDS: Heparin Nomogram Adjustment 5,000 UNIT/ML VIAL IV (18:33)
[2025-02-18 00:50] LABS: Partial Thromboplast Time 55.3 Seconds (24.1-36.2)
[2025-02-18 03:10] VITALS: BP 108/62; PULSE 94; RESP 16; TEMP 36.9; O2SAT 97
[2025-02-18 06:27] LABS: Hematocrit 26.7 % (40-54); Hemoglobin 9.3 g/dL (13.0-16.5); Immature Granulocytes Count 0.070 X10^3/uL (0.0-0.0); Mean Corp Hgb Conc 34.8 g/dL (32-36); Mean Corpuscular Volume 92.1 fL (80-94); Mean Platelet Vol. 10.3 fl (6.2-12.0); NRBC Flagged by Analyzer 0.4 % (0-5); POSITIVE DIFFERENTIAL YES; Platelet Count 214 K/mm3 (150-450); RBC Distribution Width CV 13.2 % (11.6-14.6); RBC Distribution Width SD 43.0 fl (35.1-43.9); Red Blood Count 2.90 M/mm3 (4.6-6.2); White Blood Count 15.7 K/mm3 (4.4-11.0)
[2025-02-18] MEDS: HEPARIN/D5w 25,000 UNITS 25,000 UNITS/250 ML IV.SOLN. 13.5 UNITS CONT INF (06:27)
[2025-02-18 06:37] LABS: Differential Indicated SCAN CRITERIA MET
[2025-02-18 06:46] LABS: Partial Thromboplast Time 48.2 Seconds (24.1-36.2)
[2025-02-18] MEDS: Heparin Nomogram Adjustment 5,000 UNIT/ML VIAL IV ×2 (06:49→13:28)
[2025-02-18 06:59] LABS: Anion Gap 5 (5-15); BUN 10 mg/dL (4-19); BUN/Creat Ratio 26.9 RATIO (10-20); Calcium,Total 8.3 mg/dL (7.6-11.0); Carbon Dioxide 32.9 mmol/L (21.0-32.0); Chloride 96 mmol/L (98-108); Estimated Creatinine Clearance 245.79 ml/min (50-250); Glucose 228 mg/dL (70-99); Potassium 3.9 mmol/L (3.3-5.1)
[2025-02-18 07:11] VITALS: O2SAT 93
[2025-02-18 08:43] LABS: Polychromasia 1+
--- NOTE | 2025-02-18 09:01 | PN.ORTHO_ITS ---
Subjective Subjective Patient seen and examined this morning. CTA chest ordered yesterday due to persistent tachycardia and hypoxia revealed multiple bilateral pulmonary emboli with mild heart strain. Patient was transferred to PCU and started on heparin drip. At time my examination, patient reports no fever some chills no nausea vomiting, chest pain or shortness of breath. States he was out of bed yesterday. Pain controlled. Objective Data Objective Data Vital Signs: Vital Signs Temp Pulse Resp BP Pulse Ox O2 Del Method O2 Flow Rate 98.5 F 94 16 108/62 97 Nasal Cannula 2 02/18/25 03:10 02/18/25 03:10 02/18/25 03:10 02/18/25 03:10 02/18/25 03:10 02/18/25 03:10 02/18/25 03:10 Oxygen Flow Rate (L/min) 2 Oxygen Delivery Method Nasal Cannula Weight: 174 lb 13.225 oz Body Mass Index (BMI) 28.2 Intake & Output: Intake and Output for Last 24 Hours 02/16/25 02/17/25 02/18/25 23:59 23:59 23:59 Intake Total 3605.00 / 3605.00 2341.6 / 2341.6 167.17 / 167.17 Output Total 1425 / 1425 1725 / 1725 450 / 450 Balance 2180.00 / 2180.00 616.6 / 616.6 -282.83 / -282.83 Lab / Micro Data 02/18/25 06:14 02/18/25 06:14 Labs: Laboratory Results - last 24 hr 02/14/25 14:14: Crossmatch See Detail 02/17/25 11:27: POC Glucose 211 H 02/17/25 12:03: PT 14.0, INR 1.1, APTT 25.4, Troponin T High Sens 37 H, NT pro BNP II 2045 H 02/17/25 14:00: Troponin T Hi Sens 2 Hr 34 H 02/17/25 16:15: Troponin T Hi Sens 4Hr 29 H 02/17/25 17:14: POC Glucose 232 H 02/17/25 18:00: APTT 38.3 H 02/17/25 21:16: POC Glucose 248 H 02/17/25 23:58: APTT 55.3 H 02/18/25 06:14: WBC 15.7 H, RBC 2.90 L, Hgb 9.3 L, Hct 26.7 L, MCV 92.1, MCH 32.1 H, MCHC 34.8, RDW Std Deviation 43.0, RDW Coeff of Payton 13.2, Plt Count 214, MPV 10.3, Immature Gran % (Auto) 0.400, Neut % (Auto) 63.4, Lymph % (Auto) 13.5 L, Coal % (Auto) 12.5 H, Eos % (Auto) 9.1 H, Baso % (Auto) 1.1 H, Absolute Neuts (auto) 9.9 H, Absolute Lymphs (auto) 2.11, Nucleated RBC % 0.4, Platelet Estimate ADEQUATE, Polychromasia 1+, APTT 48.2 H, Sodium 134, Potassium 3.9, C hloride 96 L, Carbon Dioxide 32.9 H, Anion Gap 5, BUN 10, Creatinine 0.38 L, Estim Creat Clear Calc 245.79, Est GFR (MDRD) Non-Af 142, BUN/Creatinine Ratio 26.9 H, Glucose 228 H, Calcium 8.3 02/18/25 06:23: POC Glucose 219 H Radiography Diagnostic Testing: Radiology Impression Chest CTA 02/17/25 11:00 IMPRESSION: 1. Multiple bilateral pulmonary emboli. Mild heart strain. 2. Lung emphysema/COPD. Left basilar atelectasis or pneumonia. Red Alert: Multiple bilateral pulmonary emboli. The critical information above was relayed directly by me by telephone to Agustina Veras Rosy on 02/17/2025 at 11:36 am with readback verification. Reading Location: [id number] Physical Exam Narrative General - A&Ox3, NAD. VSS/AF. Satting well on 2 L nasal cannula Left lower extremity -incisional dressing C/D/I. SILT Sural, Saphenous, SPN, DPN, Tibial N. distributions. DP, PT 2+. BCR. DF, PF, EHL 5/5. No calf TTP. Assessment & Plan Assessment/Plan (1) Closed fracture of left hip: PLAN: POD# 3 s/p left femur CMN - Pain controlled-continue regimen - Medicine following for medical management - PT/OT -encourage mobilization today if able. - Anticoagulant per primary for treatment of bilateral pulmonary emboli. - Will follow
[2025-02-18 09:10] VITALS: BP 105/62; PULSE 110; RESP 16; TEMP 36.9; O2SAT 97
[2025-02-18 09:34] VITALS: O2SAT 83
[2025-02-18] MEDS: Furosemide 20 MG/2 ML VIAL IV (11:05)
--- NOTE | 2025-02-18 11:32 | PN_ITS ---
Subjective Subjective Patient seen and examined. His mother was by his bedside. He had no active complaints today. His tachycardia is improving and was down to 94 this morning, though he subsequently went up to 110. He is on 2L of oxygen and dropped to 83% on room air. He was transfused with a unit of PRBC yesterday and Hb is uup to 9.3 today. Objective Data Objective Data Vital Signs: Vital Signs Temp Pulse Resp BP Pulse Ox O2 Del Method O2 Flow Rate 98.4 F 110 H 16 105/62 83 Room Air 2 02/18/25 09:10 02/18/25 09:10 02/18/25 09:10 02/18/25 09:10 02/18/25 09:34 02/18/25 09:34 02/18/25 09:30 Oxygen Flow Rate (L/min) 2 Oxygen Delivery Method Room Air Weight: 174 lb 13.225 oz Body Mass Index (BMI) 28.2 Intake & Output: Intake and Output for Last 24 Hours 02/16/25 02/17/25 02/18/25 23:59 23:59 23:59 Intake Total 3605.00 / 3605.00 2341.6 / 2341.6 167.17 / 167.17 Output Total 1425 / 1425 1725 / 1725 1175 / 1175 Balance 2180.00 / 2180.00 616.6 / 616.6 -1007.83 / -1007.83 Lab / Micro Data 02/18/25 06:14 02/18/25 06:14 Labs: Laboratory Results - last 24 hr 02/14/25 14:14: Crossmatch See Detail 02/17/25 11:27: POC Glucose 211 H 02/17/25 12:03: PT 14.0, INR 1.1, APTT 25.4, Troponin T High Sens 37 H, NT pro BNP II 2045 H 02/17/25 14:00: Troponin T Hi Sens 2 Hr 34 H 02/17/25 16:15: Troponin T Hi Sens 4Hr 29 H 02/17/25 17:14: POC Glucose 232 H 02/17/25 18:00: APTT 38.3 H 02/17/25 21:16: POC Glucose 248 H 02/17/25 23:58: APTT 55.3 H 02/18/25 06:14: WBC 15.7 H, RBC 2.90 L, Hgb 9.3 L, Hct 26.7 L, MCV 92.1, MCH 32.1 H, MCHC 34.8, RDW Std Deviation 43.0, RDW Coeff of Payton 13.2, Plt Count 214, MPV 10.3, Immature Gran % (Auto) 0.400, Neut % (Auto) 63.4, Lymph % (Auto) 13.5 L, [place] % (Auto) 12.5 H, Eos % (Auto) 9.1 H, Baso % (Auto) 1.1 H, Absolute Neuts (auto) 9.9 H, Absolute Lymphs (auto) 2.11, Nucleated RBC % 0.4, Platelet Estimate ADEQUATE, Polychromasia 1+, APTT 48.2 H, Sodium 134, Potassium 3.9, C hloride 96 L, Carbon Dioxide 32.9 H, Anion Gap 5, BUN 10, Creatinine 0.38 L, Estim Creat Clear Calc 245.79, Est GFR (MDRD) Non-Af 142, BUN/Creatinine Ratio 26.9 H, Glucose 228 H, Calcium 8.3 02/18/25 06:23: POC Glucose 219 H Radiography Diagnostic Testing: Radiology Impression Chest CTA 02/17/25 11:00 IMPRESSION: 1. Multiple bilateral pulmonary emboli. Mild heart strain. 2. Lung emphysema/COPD. Left basilar atelectasis or pneumonia. Red Alert: Multiple bilateral pulmonary emboli. The critical information above was relayed directly by me by telephone to Agustina Veras on 02/17/2025 at 11:36 am with readback verification. Reading Location: [facility] [place] Physical Exam Const alert and no apparent distress Constitutional Narrative: has underlying MRDD but is able to communicate and answer questions. Patient still looks pale, weak and sweaty. General Appearance: cooperative HEENT normocephalic, head/scalp atraumatic and hearing grossly normal bilaterally Eyes PERRL and EOMs intact bilaterally Neck no lymphadenopathy, supple and no JVD Lymph Lymphatic: no lymphedema noted Resp Resp Narrative: Mildly diminished breath sounds bibasilarly. No wheezes or crackles. On 2 L of oxygen by nasal cannula today. Cardio regular rhythm, S1 normal heart sound, S2 normal heart sound and no murmurs Cardio Narrative: tachycardic; sinus tachycardia which appears to be improving. GI normal to inspection, nondistended, normoactive bowel sounds, soft to palpation and non-tender Extremity normal to inspection, full ROM and no clubbing, cyanosis or edema Extremity Narrative: intact dressing over left hip. No evidence of bleeding at surgical site. Skin General Skin Exam: no breakdown Neuro CN's II-XII intact bilaterally and moves all extremities Neuro Narrative: lethargic. Sensorium / Orientation: awake Motor Exam: general weakness Psych Psych Narrative: flat affect Mood & Affect: flat affect Assessment & Plan Assessment/Plan (1) Closed fracture of left hip: (2) Fall: PLAN: Plan #Closed left hip fracture due to mechanical fall * Patient fell after his leg got caught under the freezer. Imaging shows a left comminuted femoral neck fracture * patient had left hip ORIF on 02/15/2025. POD 3. * Orthopedics on board. * P.o. oxycodone and IV morphine as needed for pain. Hold off on Tylenol due to elevated liver enzymes * PT OT consult. Fall precautions. * Chest x-ray did not show any acute cardiopulmonary pathology. #Acute hypotension and sinus tachcyardia. * hypotension has resolved after hydration. Patient however has remained tachycardic, with HR in the 110s-120s. * I discussed with the ortho PA today. It turns out patient had a lapse of about 2 days after the fracture before coming in to the hospital as he wnt to a chiropractor in [place]. He is therefore at increased risk of PE * will therefore order stat CTA chest to rule out a PE; I was informed by nursing that radiology called that CTA chest showed multiple bilateral PEs * on heparin drip * #Acute anemia due to acute blood loss from surgery. * Hb is 7.7. Hb was 12.7 on admission and was 9.5 yesterday * may be due to acute blood loss from surgery. * will transfuse with one unit of one unit of PRBC. * #acute bilateral submassive PE * As stated above patient noted to be tachycardic right from PACU after he had surgery on 02/15/2025. He remained tachycardic overnight and into the morning of 02/16/2025. At time of review on 02/16/2025, patient was pale and tachycardic with weak pulse. Blood pressure check was 67/43. He had not received any fluids after the surgery and so it was thought that his hypotension and tachycardia was due to volume depletion. He was therefore aggressively hydrated with IV fluids. His blood pressure did improve and was in the 120 systolic this morning. However tachycardia persisted and as stated above in light of patient having been at home with a fracture for about 2 days before coming in he is at high risk of PE. Stat CT of the chest was ordered this morning and showed multiple bilateral pulmonary emboli with mild heart strain and lung emphysema and left basilar atelectasis or pneumonia, with no evidence of RV dysfunction. * Was started on heparin drip without bolus because he had already received Eliquis for DVT prophylaxis and also in light of his acute on chronic anemia with his hemoglobin dropping to 7.7 requiring blood transfusion. * BNP was elevated at over 1999. Initial troponin was 37 but trended down was to 29. 2D echo ordered but will be done tomorrow. * I discussed with Dr. Hawley on phone about whether patient is a candidate for revascularization therapy. He is going to review the CT to determine if patient would be a suitable candidate. * Dr Hawley reviewed the imaging and stated that he did not think the patient was a candidate for catheter directed thrombectomy as the blood clots were subsegmental. * I consulted pulmonology. I spoke to Dr. Solomon Urbina of telemetry critical care at 3:25pm on 02/17/2025. He requested for an echo. I explained to him an echo had already been ordered but due to it being Wednesday and the timing, echo could not be done until Wednesday. He stated he wanted patient transferred for an echo. I explained to him that it would be difficult to transfer the patient to a tertiary center just for a 2D echo in light of bed availability and challenges we have had with transfer. * I spoke to Dr. Bee the forestry farm laborer on-call to inquire about a bedside echo or to see if the armorer technician could be called in for an echo. Upon discussing patient's presentation and current vitals with him with patient being on 2 L of oxygen and saturating at 98%, blood pressure 117/78 at time of our discussion, respiratory rate of 16, HR of 118 (trending down slightly), proBNP being elevated at 2044, initial troponin of 37 and delta troponin going to 34, CT scan finding showing no evidence of right ventricular strain and my having discussed the patient already with Dr. Hawley who reviewed patient's images and said patient was not a candidate for catheter directed thrombectomy, cardiology did not think that the echo needed to be done stat as patient was hemodynamically stable and tachycardia was improving. Per cardiology echo can be done on Wednesday. * will give patient a bolus of IV lasix 20mg x 1 as he is in cumulative positive balance by 3.4 L * #Elevated liver enzymes: * Total bilirubin is elevated as well as AST and ALT. Liver enzymes have started trending downwards. Hepatitis panel was negative. * It appears that it was mainly an indirect hyperbilirubinemia. * There does not appear to be any evidence of hemolysis though. * Patient refused liver USG as he would have to be self pay. * liver enzymes are trending downwards * #Leukocytosis: Likely reactive. No clear evidence of infection. Will monitor and trend. #Hyponatremia: resolved. #History of prediabetes with hyperglycemia: Started on insulin sliding scale. Accu-Cheks ACHS. #History of spherocytosis: s/p remote splenectomy. Stable DVT prophylaxis: not indicated as patient is on heparin drip. CODE STATUS: full code Charges/Coding Visit Charges Inpatient E&M: 73318 Subs Hosp L2
[2025-02-18 12:57] LABS: Partial Thromboplast Time 48.4 Seconds (24.1-36.2)
[2025-02-18 15:00] VITALS: BP 106/67; PULSE 103; RESP 16; TEMP 36.7; O2SAT 98
--- NOTE | 2025-02-18 18:06 | PN.CC_ITS ---
Objective Data Objective Data Vital Signs: Vital Signs Last response 3 Temperature 36.7 C 02/18/25 15:00 Temperature Source Oral 02/18/25 15:00 Pulse Rate 103 H 02/18/25 15:00 Pulse Strength Normal (2+) 02/17/25 20:15 Respiratory Rate 16 02/18/25 15:00 Respiratory Effort Normal, Non-Labored 02/18/25 09:30 Respiratory Depth Normal 02/18/25 09:30 Respiratory Pattern Normal 02/18/25 09:30 Blood Pressure 106/67 02/18/25 15:00 Blood Pressure Mean 80 02/18/25 15:00 Blood Pressure Source Monitor 02/18/25 15:00 Blood Pressure Position Semi-Fowlers 02/18/25 15:00 Blood Pressure Location Right Arm 02/18/25 15:00 Baseline BP 127/76 02/15/25 18:58 Pulse Ox 98 02/18/25 15:00 Oxygen Delivery Method Nasal Cannula 02/18/25 15:00 Oxygen Flow Rate (L/min) 2 02/18/25 15:00 I&O: I&O Last 24 Hours 3 02/17/25 02/18/25 02/18/25 23:59 11:59 23:59 Intake Total 191.6 / 2341.6 167.17 / 262.03 94.86 / 262.03 Output Total 1375 / 1725 1175 / 2675 1500 / 2675 Balance -1183.4 / 616.6 -1007.83 / -2412.97 -1405.14 / -2412.97 I&O: Total Stay 3 02/14/25 09:21 thru 02/18/25 17:05 Intake Total 40766.63 Output Total 7975 Balance 2033.63 Current Meds Ordered / Administered: Current meds ordered / Administered 3 Generic Name Dose Route Start Last Admin Trade Name Freq PRN Reason Stop Dose Admin Acetaminophen 650 mg 02/17/25 18:15 02/18/25 17:04 Acetaminophen 325 Mg Tablet PO 650 mg Q6 KATIA Administration Calcium Carbonate 500 mg 02/16/25 08:00 02/18/25 17:03 Calcium Carbonate 500 Mg Tablet PO 500 mg TIDCM KATIA Administration Heparin Sodium (Porcine) 0 unit 02/17/25 11:41 02/18/25 13:28 Heparin Nomogram Adjustment 5,000 Unit/Ml Vial IV 1,000 unit UD PRN Administration Dose Adjustment Protocol Sodium Chloride 250 mls @ 15 mls/hr 02/14/25 12:42 IV .[id number] PRN Saline Flush Sodium Chloride 250 mls @ 15 mls/hr 02/14/25 12:42 IV .[id number] PRN Additional IVPB Infusion Heparin Sodium/Dextrose 25,000 units in 250 mls @ 11.895 mls/hr 02/17/25 11:45 02/18/25 13:28 CONT INF 19 unit/kg/hr .Q21H2M KATIA 15.1 mls/hr Titration Protocol 15 UNIT/KG/HR Insulin Human Lispro 0 unit 02/16/25 11:00 02/18/25 17:04 Insulin Lispro 100 Unit/Ml Insuln.Pen SC 1 units ACHS KATIA Administration Protocol Morphine Sulfate 2 - 4 mg 02/14/25 12:55 02/15/25 10:40 Morphine 2 Mg/Ml Syringe IV 2 mg Q3H PRN PRN Administration Pain Score 6-10 Ondansetron HCl 4 mg 02/14/25 12:53 Ondansetron 4 Mg/2 Ml Vial IV Q8H PRN PRN NAUSEA/VOMITING Oxycodone HCl 5 mg 02/14/25 12:55 02/18/25 11:06 Oxycodone 5 Mg Tablet PO 5 mg Q4H PRN PRN Administration Pain Score 4-10 Senna/Docusate Sodium 2 tablet 02/14/25 22:00 02/18/25 09:35 Senna/Docusate Sodium 1 Tablet PO Not Given BID KATIA Sertraline HCl 200 mg 02/16/25 22:00 02/17/25 21:17 Sertraline 100 Mg Tablet PO 200 mg QHS KATIA Administration Sodium Chloride 10 - 40 ml 02/14/25 12:42 02/16/25 00:13 0.9% Saline Lock 10 Ml Syringe IV 10 ml UD PRN Administration SALINE FLUSH Lab / Micro Data 02/18/25 06:14 02/18/25 06:14 Labs: Laboratory Results - last 24 hr 02/17/25 18:00: APTT 38.3 H 02/17/25 21:16: POC Glucose 248 H 02/17/25 23:58: APTT 55.3 H 02/18/25 06:14: WBC 15.7 H, RBC 2.90 L, Hgb 9.3 L, Hct 26.7 L, MCV 92.1, MCH 32.1 H, MCHC 34.8, RDW Std Deviation 43.0, RDW Coeff of Payton 13.2, Plt Count 214, MPV 10.3, Immature Gran % (Auto) 0.400, Neut % (Auto) 63.4, Lymph % (Auto) 13.5 L, [place] % (Auto) 12.5 H, Eos % (Auto) 9.1 H, Baso % (Auto) 1.1 H, Absolute Neuts (auto) 9.9 H, Absolute Lymphs (auto) 2.11, Nucleated RBC % 0.4, Platelet Estimate ADEQUATE, Polychromasia 1+, APTT 48.2 H, Sodium 134, Potassium 3.9, C hloride 96 L, Carbon Dioxide 32.9 H, Anion Gap 5, BUN 10, Creatinine 0.38 L, Estim Creat Clear Calc 245.79, Est GFR (MDRD) Non-Af 142, BUN/Creatinine Ratio 26.9 H, Glucose 228 H, Calcium 8.3 02/18/25 06:23: POC Glucose 219 H 02/18/25 11:10: POC Glucose 245 H 02/18/25 12:35: APTT 48.4 H 02/18/25 17:03: POC Glucose 201 H Assessment and Plan . Assessment and plan: HPI 44 yo male non-smoker admitted 02/14/25 w/ femoral neck fracture after GLF at home 0n 02/13/25. Imaging revealed femoral neck fracture - admitted and orthopedic surgery consultation obtained. On 02/15/25 he underwent uncomplicated IM nail placement using GETA. Postoperatively, noted persistent tachycardia w/ HR 105-125 sustained despite volume expansion and analgesia. On 02/16/25 noted diaphoresis and hypotension requiring IVF bolus w/ improved BP. Above prompted CTA chest which was performed 02/17/25 am - noted bilateral segmental and subsegmental emboli - no obvious large central thrombi. Report notes mild heart strain w/o further elaboration. On my review, it appears that the RV:LV ratio is a bit increased. Subsequently, IV UFH has been initiated w/o bolus. Lab reveals modest elevation troponin and significantly elevated p-BNP. BP is WNL - persistent tachycardia 100-110 BPM. He is breathing O2 2 LPM comfortably at rest. He is not very forthcoming, but is largely w/o complaints and appears in NAD. I have been told that TTE is not currently available. 02/18/25 He appears comfortable HR remains around 110 BPM - O2 via N/C IV UFH infusing per protocol - does not appear therapeutic yet HGB 9 g/dL - stable Hope to obtain TTE tomorrow EXAM GEN NAD VS as above HEENT O2 N/C NECK no obvious JVD COR tachy, reg CHEST CTA ABD soft EXT minimal edema SKIN w/d GONZALEZ NF ASSESSMENT/RECOMMENDATION 1. Acute VTED w/ tachycardia and elevated cardiac biomarkers 2. Recent operative repair femoral fracture 3. Anemia -supplemental O2 as needed -IV UFH per protocol -TTE is pending -follow HGB daily -see prior note for additional thoughts and recommendations The entirety of this encounter was done via Telemedicine
[2025-02-18 19:14] LABS: Partial Thromboplast Time 60.7 Seconds (24.1-36.2)
[2025-02-18 22:19] VITALS: BP 110/70; PULSE 96; RESP 16; TEMP 37.3; O2SAT 95
[2025-02-19] MEDS: HEPARIN/D5w 25,000 UNITS 25,000 UNITS/250 ML IV.SOLN. 15.1 UNITS CONT INF (01:36)
[2025-02-19 01:49] LABS: Partial Thromboplast Time 61.2 Seconds (24.1-36.2)
[2025-02-19 03:58] VITALS: BP 107/68; PULSE 91; RESP 14; TEMP 37.1; O2SAT 95
[2025-02-19 06:49] LABS: Hematocrit 27.6 % (40-54); Hemoglobin 9.3 g/dL (13.0-16.5); Immature Granulocytes Count 0.080 X10^3/uL (0.0-0.0); Mean Corp Hgb Conc 33.7 g/dL (32-36); Mean Corpuscular Volume 92.9 fL (80-94); Mean Platelet Vol. 10.2 fl (6.2-12.0); NRBC Flagged by Analyzer 0.5 % (0-5); POSITIVE DIFFERENTIAL YES; Platelet Count 292 K/mm3 (150-450); RBC Distribution Width CV 13.6 % (11.6-14.6); RBC Distribution Width SD 44.0 fl (35.1-43.9); Red Blood Count 2.97 M/mm3 (4.6-6.2); White Blood Count 15.2 K/mm3 (4.4-11.0)
[2025-02-19 06:53] LABS: Differential Indicated SCAN CRITERIA MET
[2025-02-19 07:13] LABS: Anion Gap 8 (5-15); BUN 12 mg/dL (4-19); BUN/Creat Ratio 30.8 RATIO (10-20); Calcium,Total 8.7 mg/dL (7.6-11.0); Carbon Dioxide 31.1 mmol/L (21.0-32.0); Chloride 96 mmol/L (98-108); Estimated Creatinine Clearance 245.79 ml/min (50-250); Glucose 215 mg/dL (70-99); Potassium 4.2 mmol/L (3.3-5.1)
--- NOTE | 2025-02-19 08:45 | PN.CC_ITS ---
Assessment & Plan Assessment/Plan (1) Pulmonary emboli: PLAN: Plan RECOMMENDATIONS: 1. Continue weight-based heparin infusion. 2. Await results of echocardiogram. 3. Continue to wean supplemental oxygen to maintain saturations at or above 90%. 4. Encourage incentive spirometer use and mobilize patient as tolerated. IMPRESSIONS: 1. Submassive pulmonary embolism The patient presented with bilateral pulmonary emboli and biochemical and radiographic evidence of right heart strain in the setting of a recent left hip fracture requiring ORIF on February 15. The patient has been maintained on a weight-based heparin infusion. She appears clinically stable at the present time on 2 L/min. Echocardiogram is currently pending. The patient was not deemed to be a candidate for thrombectomy following evaluation by vascular surgery. Recommend continuing to wean supplemental oxygen as tolerated. Perform walking oximetry study prior to consideration for discharge home. If the patient remains clinically stable over the next 24 hours, she can likely be transition to either Eliquis or Xarelto. This note was generated with [employer] dictation software. It may contain incorrect words, spelling, and punctuation that were not noted in checking the note before signing. Subjective Subjective The patient was seen and examined at the bedside this morning. Events from the last 24 hours have been reviewed. The patient is currently afebrile, hemodynamically stable and maintaining appropriate oxygen saturations on 2 L/min via nasal cannula. The patient remains on a weight-based heparin infusion with echocardiogram pending. Objective Data Objective Data The patient's most recent lab work, culture data and imaging studies have all been personally reviewed. Vital Signs: Vital Signs Temp Pulse Resp BP Pulse Ox O2 Del Method O2 Flow Rate 98.8 F 91 14 107/68 95 Nasal Cannula 2 02/19/25 03:58 02/19/25 03:58 02/19/25 03:58 02/19/25 03:58 02/19/25 03:58 02/19/25 08:06 02/19/25 08:06 Oxygen Flow Rate (L/min) 2 Oxygen Delivery Method Nasal Cannula Weight: 174 lb 13.225 oz Body Mass Index (BMI) 28.2 Intake & Output: Intake and Output for Last 24 Hours 02/17/25 02/18/25 02/19/25 23:59 23:59 23:59 Intake Total 2341.6 / 2341.6 412.00 / 412.00 300 / 300 Output Total 1725 / 1725 2675 / 3575 1450 / 1450 Balance 616.6 / 616.6 -2263.00 / -3163.00 -1150 / -1150 Lab / Micro Data Attestation: I reviewed the patient's lab results. 02/19/25 06:11 02/19/25 06:11 Labs: Laboratory Results - last 24 hr 02/18/25 11:10: POC Glucose 245 H 02/18/25 12:35: APTT 48.4 H 02/18/25 17:03: POC Glucose 201 H 02/18/25 18:59: APTT 60.7 H 02/18/25 22:30: POC Glucose 269 H 02/19/25 01:26: APTT 61.2 H 02/19/25 06:11: WBC 15.2 H, RBC 2.97 L, Hgb 9.3 L, Hct 27.6 L, MCV 92.9, MCH 31.3, MCHC 33.7, RDW Std Deviation 44.0 H, RDW Coeff of Payton 13.6, Plt Count 292, MPV 10.2, Immature Gran % (Auto) 0.500, Neut % (Auto) 66.0, Lymph % (Auto) 12.7 L, [place] % (Auto) 12.5 H, Eos % (Auto) 7.3 H, Baso % (Auto) 1.0, Absolute Neuts (auto) 10.1 H, Absolute Lymphs (auto) 1.93, Nucleated RBC % 0.5, Sodium 135, Potassium 4.2, Chloride 96 L, Carbon Dioxide 31.1, Anion Gap 8, BUN 12, C reatinine 0.38 L, Estim Creat Clear Calc 245.79, Est GFR (MDRD) Non-Af 142, B UN/Creatinine Ratio 30.8 H, Glucose 215 H, Calcium 8.7 02/19/25 06:46: POC Glucose 199 H Physical Exam Const alert and no apparent distress General Appearance: cooperative HEENT normocephalic and head/scalp atraumatic Eyes PERRL, EOMs intact bilaterally and conjunctivae normal Neck supple General: trachea midline Chest inspection of chest normal Resp normal respiratory effort Auscultation: Negative for rales, rhonchi or wheezes Cardio regular rate and regular rhythm GI normal to inspection, nondistended, normoactive bowel sounds Extremity no clubbing, cyanosis or edema Skin no rashes or lesions noted Neuro CN's II-XII intact bilaterally, moves all extremities and no focal motor deficits Psych cooperative and affect normal Charges/Coding Visit Charges Inpatient E&M: 86371 Subs Hosp L2
--- NOTE | 2025-02-19 11:10 | NURSING ---
this RN assuming care of pt at this time
--- NOTE | 2025-02-19 11:37 | CASEMGMT ---
Social Work SW spoke w/pt and pt's mother in the room. As per pt's mother, they will take pt home and be able to help pt with ADLs at home. Pt lives with his parents. There are other family members around also, but as per pt's mother, pt's father will be the one to assist pt the most. She explained pt had his other femur done 5 years ago, and they were able to help pt then. Pt did do better w/therapy today. She states they have all the DME from five years ago, including wheeled walker, cane, wheelchair and bedside commode. She states she also broke her leg very badly and her cared for her at that time. Pt's mother joked that pt's father has had a lot of experience in caring for people w/leg injuries. We spoke about therapy, she is open to a script for outpt PT, is not certain if they will follow up w/outpt PT or not, again pt's mother feels they have a lot of experience already and know what to do. SW explained will get a script for them, and they can decide whether or not they want to use it. SW inquired about medication, pt's mother states they use [facility] in [place] and they just pay for medications out of pocket. SW will continue to follow, will give pt's mother the script for outpt PT upon d/c. MAURICE Betancourt
[2025-02-19 11:49] VITALS: BP 106/65; PULSE 99; RESP 14; TEMP 36.6; O2SAT 98
--- NOTE | 2025-02-19 12:48 | PN_ITS ---
Subjective Subjective Patient seen and examined with his nurse by his bedside. His mother ws by his bedside. He nam dno complaints and had an uneventful night. Tachyardia has improved. Review of systems is otherwise negative. Objective Data Objective Data Vital Signs: Vital Signs Temp Pulse Resp BP Pulse Ox O2 Del Method O2 Flow Rate 98 F 99 14 106/65 98 Nasal Cannula 2 02/19/25 11:49 02/19/25 11:49 02/19/25 11:49 02/19/25 11:49 02/19/25 11:49 02/19/25 11:49 02/19/25 11:49 Oxygen Flow Rate (L/min) 2 Oxygen Delivery Method Nasal Cannula Weight: 174 lb 13.225 oz Body Mass Index (BMI) 28.2 Intake & Output: Intake and Output for Last 24 Hours 02/17/25 02/18/25 02/19/25 23:59 23:59 23:59 Intake Total 2341.6 / 2341.6 412.00 / 412.00 300 / 300 Output Total 1725 / 1725 2675 / 3575 1452 / 1452 Balance 616.6 / 616.6 -2263.00 / -3163.00 -1152 / -1152 Lab / Micro Data 02/19/25 06:11 02/19/25 06:11 Labs: Laboratory Results - last 24 hr 02/18/25 12:35: APTT 48.4 H 02/18/25 17:03: POC Glucose 201 H 02/18/25 18:59: APTT 60.7 H 02/18/25 22:30: POC Glucose 269 H 02/19/25 01:26: APTT 61.2 H 02/19/25 06:11: WBC 15.2 H, RBC 2.97 L, Hgb 9.3 L, Hct 27.6 L, MCV 92.9, MCH 31.3, MCHC 33.7, RDW Std Deviation 44.0 H, RDW Coeff of Payton 13.6, Plt Count 292, MPV 10.2, Immature Gran % (Auto) 0.500, Neut % (Auto) 66.0, Lymph % (Auto) 12.7 L, [place] % (Auto) 12.5 H, Eos % (Auto) 7.3 H, Baso % (Auto) 1.0, Absolute Neuts (auto) 10.1 H, Absolute Lymphs (auto) 1.93, Nucleated RBC % 0.5, Sodium 135, Potassium 4.2, Chloride 96 L, Carbon Dioxide 31.1, Anion Gap 8, BUN 12, C reatinine 0.38 L, Estim Creat Clear Calc 245.79, Est GFR (MDRD) Non-Af 142, B UN/Creatinine Ratio 30.8 H, Glucose 215 H, Calcium 8.7 02/19/25 06:46: POC Glucose 199 H 02/19/25 11:46: POC Glucose 194 H Physical Exam Const alert and no apparent distress Constitutional Narrative: has underlying MRDD but is able to communicate and answer questions. Looks more alert and communicative. General Appearance: cooperative HEENT normocephalic, head/scalp atraumatic and hearing grossly normal bilaterally Eyes PERRL and EOMs intact bilaterally Neck no lymphadenopathy, supple and no JVD Lymph Lymphatic: no lymphedema noted Resp normal respiratory effort Resp Narrative: Mildly diminished breath sounds bibasilarly. No wheezes or crackles. Remains on 2L of oxygen. Cardio regular rate, regular rhythm, S1 normal heart sound, S2 normal heart sound and no murmurs Cardio Narrative: tachycardia has resolved. GI normal to inspection, nondistended, normoactive bowel sounds, soft to palpation and non-tender Extremity normal to inspection, full ROM and no clubbing, cyanosis or edema Extremity Narrative: intact dressing over left hip. No evidence of bleeding at surgical site. General Extremity: no tenderness to palpation of joints or extremities Skin General Skin Exam: no breakdown Neuro oriented x3, CN's II-XII intact bilaterally and moves all extremities Neuro Narrative: lethargic. Sensorium / Orientation: awake and alert Motor Exam: strength 5/5 throughout and general weakness Psych affect normal Psych Narrative: flat affect Mood & Affect: flat affect Assessment & Plan Assessment/Plan (1) Closed fracture of left hip: (2) Fall: PLAN: Plan #Closed left hip fracture due to mechanical fall * Patient fell after his leg got caught under the freezer. Imaging shows a left comminuted femoral neck fracture * patient had left hip ORIF on 02/15/2025. POD 4. * Orthopedics on board. * P.o. oxycodone and IV morphine as needed for pain. Hold off on Tylenol due to elevated liver enzymes * PT OT on board. Fall precautions. * Chest x-ray did not show any acute cardiopulmonary pathology. #Acute hypotension and sinus tachcyardia. * resolved. * * #Acute anemia due to acute blood loss from surgery. * S/p transfusion with 1 unit of packed red blood cells. Hemoglobin today is 9.3. * \ #acute bilateral submassive PE * As stated above patient noted to be tachycardic right from PACU after he had surgery on 02/15/2025. He remained tachycardic overnight and into the morning of 02/16/2025. At time of review on 02/16/2025, patient was pale and tachycardic with weak pulse. Blood pressure check was 67/43. He had not received any fluids after the surgery and so it was thought that his hypotension and tachycardia was due to volume depletion. He was therefore aggressively hydrated with IV fluids. His blood pressure did improve and was in the 120 systolic this morning. However tachycardia persisted and as stated above in light of patient having been at home with a fracture for about 2 days before coming in he is at high risk of PE. Stat CT of the chest was ordered this morning and showed multiple bilateral pulmonary emboli with mild heart strain and lung emphysema and left basilar atelectasis or pneumonia, with no evidence of RV dysfunction. * Was started on heparin drip without bolus because he had already received Eliquis for DVT prophylaxis and also in light of his acute on chronic anemia with his hemoglobin dropping to 7.7 requiring blood transfusion. * BNP was elevated at over 2000. Initial troponin was 37 but trended down was to 29. 2D echo ordered but will be done tomorrow. * I discussed with Dr. Hawley on phone about whether patient is a candidate for revascularization therapy. He is going to review the CT to determine if patient would be a suitable candidate. * Dr Hawley reviewed the imaging and stated that he did not think the patient was a candidate for catheter directed thrombectomy as the blood clots were subsegmental. * 2D echo ordered over the weekend and to be done today. Will switch to therapeutic dose of Eliquis in light of patient's tachycardia resolving. * #Elevated liver enzymes: * Total bilirubin is elevated as well as AST and ALT. Liver enzymes have started trending downwards. Hepatitis panel was negative. * It appears that it was mainly an indirect hyperbilirubinemia. * There does not appear to be any evidence of hemolysis though. * Patient refused liver USG as he would have to be self pay. * liver enzymes are trending downwards * #Leukocytosis: Likely reactive. No clear evidence of infection. Will monitor and trend. #Hyponatremia: resolved. #History of prediabetes with hyperglycemia: On insulin sliding scale. Accu- Cheks ACHS. #History of spherocytosis: s/p remote splenectomy. Stable DVT prophylaxis: not indicated as patient is on heparin drip. CODE STATUS: full code Charges/Coding Visit Charges Inpatient E&M: 88879 Subs Hosp L2
--- NOTE | 2025-02-19 13:57 | PCM.PN.ORT ---
Subjective Subjective Patient seen and examined. Late entry note, patient seen at 0 900 this morning. States pain is controlled. Up to chair and out of bed this morning. Denies fevers, chills, nausea vomiting, chest pain or shortness of breath. Objective Data Objective Data Vital Signs: Vital Signs Temp Pulse Resp BP Pulse Ox O2 Del Method O2 Flow Rate 98 F 99 14 106/65 98 Nasal Cannula 2 02/19/25 11:49 02/19/25 11:49 02/19/25 11:49 02/19/25 11:49 02/19/25 11:49 02/19/25 11:49 02/19/25 11:49 Oxygen Flow Rate (L/min) 2 Oxygen Delivery Method Nasal Cannula Weight: 174 lb 13.225 oz Body Mass Index (BMI) 28.2 Intake & Output: Intake and Output for Last 24 Hours 02/17/25 02/18/25 02/19/25 23:59 23:59 23:59 Intake Total 2341.6 / 2341.6 412.00 / 412.00 300 / 300 Output Total 1725 / 1725 2675 / 3575 1452 / 1452 Balance 616.6 / 616.6 -2263.00 / -3163.00 -1152 / -1152 Lab / Micro Data 02/19/25 06:11 02/19/25 06:11 Labs: Laboratory Results - last 24 hr 02/18/25 17:03: POC Glucose 201 H 02/18/25 18:59: APTT 60.7 H 02/18/25 22:30: POC Glucose 269 H 02/19/25 01:26: APTT 61.2 H 02/19/25 06:11: WBC 15.2 H, RBC 2.97 L, Hgb 9.3 L, Hct 27.6 L, MCV 92.9, MCH 31.3, MCHC 33.7, RDW Std Deviation 44.0 H, RDW Coeff of Payton 13.6, Plt Count 292, MPV 10.2, Immature Gran % (Auto) 0.500, Neut % (Auto) 66.0, Lymph % (Auto) 12.7 L, [place] % (Auto) 12.5 H, Eos % (Auto) 7.3 H, Baso % (Auto) 1.0, Absolute Neuts (auto) 10.1 H, Absolute Lymphs (auto) 1.93, Nucleated RBC % 0.5, Sodium 135, Potassium 4.2, Chloride 96 L, Carbon Dioxide 31.1, Anion Gap 8, BUN 12, Creatinine 0.38 L, Estim Creat Clear Calc 245.79, Est GFR (MDRD) Non-Af 142, BUN/Creatinine Ratio 30.8 H, Glucose 215 H, Calcium 8.7 02/19/25 06:46: POC Glucose 199 H 02/19/25 11:46: POC Glucose 194 H Physical Exam Narrative General - A&Ox3, NAD. VSS/AF. Satting well on 2 L nasal cannula Left lower extremity -incisional dressing C/D/I. SILT Sural, Saphenous, SPN, DPN, Tibial N. distributions. DP, PT 2+. BCR. DF, PF, EHL /5. No calf TTP. Assessment & Plan Assessment/Plan (1) Closed fracture of left hip: PLAN: POD# 4 s/p left femur CMN - Pain controlled-continue regimen - Medicine following for medical management - PT/OT -encourage mobilization today if able. - Anticoagulant per primary for treatment of bilateral pulmonary emboli. -Patient stable from orthopedic standpoint. Defer to primary regarding discharge disposition. Patient would benefit from some form of physical therapy upon discharge. Patient will need outpatient follow-up with a PCP for anticoagulant management. Follow-up at [facility] approximately 2 weeks postoperatively. Discussed the plan of care with the patient's mother who is at bedside. I will sign off at this time. Please not hesitate to call if any questions or concerns arise. Discharge instructions: Maintain surgical dressing x 5 days and then okay to remove and shower. No tub soaks. Dressing changes as needed for saturation. Continue use of walker. Weightbearing as tolerated to the operative hip. Follow-up at [facility] 2 weeks postoperatively for staple removal and x-rays.
[2025-02-19] MEDS: APIXABAN 5 MG TABLET 10 MG PO ×2 (14:03→20:56)
[2025-02-19 14:06] VITALS: O2SAT 84
[2025-02-19 14:07] VITALS: O2SAT 93
[2025-02-19] MEDS: 0.9% Saline Lock 10 ML Syringe IV ×2 (14:12→21:01)
[2025-02-19 15:25] VITALS: BP 110/68; PULSE 98; RESP 14; TEMP 36.8; O2SAT 94
--- NOTE | 2025-02-19 16:11 | NURSING ---
This RN taking over care of pt at this time.
[2025-02-19] MEDS: Senna/Docusate Sodium 1 Tablet 2 TABLET PO (20:55)
[2025-02-19 21:20] VITALS: BP 105/59; PULSE 97; RESP 16; TEMP 37.3; O2SAT 98
[2025-02-20 03:00] VITALS: BP 115/83; PULSE 102; RESP 18; TEMP 37.2; O2SAT 97
[2025-02-20 05:58] LABS: Hematocrit 30.8 % (40-54); Hemoglobin 10.4 g/dL (13.0-16.5); Immature Granulocytes Count 0.060 X10^3/uL (0.0-0.0); Mean Corp Hgb Conc 33.8 g/dL (32-36); Mean Corpuscular Volume 92.2 fL (80-94); Mean Platelet Vol. 9.8 fl (6.2-12.0); NRBC Flagged by Analyzer 1.0 % (0-5); POSITIVE DIFFERENTIAL YES; Platelet Count 376 K/mm3 (150-450); RBC Distribution Width CV 14.3 % (11.6-14.6); RBC Distribution Width SD 45.8 fl (35.1-43.9); Red Blood Count 3.34 M/mm3 (4.6-6.2); White Blood Count 13.5 K/mm3 (4.4-11.0)
[2025-02-20 06:14] LABS: Partial Thromboplast Time 28.6 Seconds (24.1-36.2)
[2025-02-20 06:16] LABS: Differential Indicated SCAN CRITERIA MET
[2025-02-20 06:22] LABS: Anion Gap 9 (5-15); BUN 12 mg/dL (4-19); BUN/Creat Ratio 32.4 RATIO (10-20); Calcium,Total 9.0 mg/dL (7.6-11.0); Carbon Dioxide 29.1 mmol/L (21.0-32.0); Chloride 95 mmol/L (98-108); Estimated Creatinine Clearance 252.43 ml/min (50-250); Glucose 197 mg/dL (70-99); Potassium 4.3 mmol/L (3.3-5.1)
[2025-02-20 08:08] VITALS: O2SAT 94
[2025-02-20 09:00] VITALS: BP 111/76; PULSE 88; RESP 16; TEMP 36.6; O2SAT 97
[2025-02-20] MEDS: APIXABAN 5 MG TABLET 10 MG PO (09:03)
[2025-02-20 09:52] VITALS: O2SAT 97; O2SAT 98
--- NOTE | 2025-02-20 12:10 | DCINST_ITS ---
Discharge Instructions DC O2, CPAP, BIPAP needs Home O2 Discharge instructions: Yes Type of respiratory needs?: Oxygen Oxygen frequency: Continuous Continuous oxygen liters per minute: 2 Dressing / Incision Discharge Activity: Return to Normal Activity Dressing / Incision Call your doctor if you observe: Fever of 101 or Higher, Shortness of breath, Chest pain, Increased palpitations (irregular heartbeat) and Uncontrolled pain Follow Up Care Test Results: Test results from this visit will be discussed in further detail at your follow- up appointment, if applicable. Discharge Plan Admission Admit Date/Time: 02/14/25 11:37 Primary Reason for Your Visit: left hip fracture, PE Attending Provider: Agustina Veras Primary Care Provider: DIANA COHEN Consulting Providers: Leroy Gan; Gene Ivan; Lenin Mcginnis; Seamus Reagan; Marty Kirk; Robby Newberry; Heath Nunez; Julio Yee; Irma García; Tate Lacy; David Moreno; Tristen Knox; Whit Watkins; Deshawn Navarro; Mony Ignacio; Alexx Malin; Lio Saeed; Jr Ansari; Antonio Del Rosario; Rere Turner; Jeff Sauer; Dedrick Ford; Jovon Bentley; Solomon Lechuga Instructions Patient Instructions: Hip Fx Common Questions, Hip Fx Surg Dc Discharge Orders/Prescriptions Prescriptions: New oxycodone 5 mg Tablet 5 mg PO Q4H PRN PRN (Reason: Pain Score 4-10) 3 Days Qty: 18 0RF Eliquis DVT-PE Treat 30D Start 5 mg (74 tabs) tablets,dose pack 5 mg PO BID Qty: 74 0RF Rx Instructions: take 2 tabs (10mg) twice daily for seven days, then continue with one tablet (5mg) twice daily to treat pulmonary embolism. Continued sertraline 100 mg tablet 200 mg PO DAILY Patient Comments: family unsure of mg dose he takes two 100 mg tablets once a day if I had to guess Rx Instructions: orally daily; Referrals / Follow Up: DIANA COHEN [Other] - Within 1 Week DIANA COHEN [Other] Marty Kirk DO [Med Staff - Active Staff] - Within 2 Weeks (see to establish care for PE with severe pulmonary hypertension) Leroy Gan DO [Med Staff - Active Staff] - Within 2 Weeks Disposition Disposition (needs filled in before D/C Order can be placed): Home, Self Care
--- NOTE | 2025-02-20 12:14 | DS.PCM_ITS ---
Providers Date of Admission: 02/14/25 Primary Care Physician: DIANA COHEN Consultations 02/14/25 12:55 Consult: Orthopedics Routine Consulting Provider: Leroy Gan Reason for Consult: left femoral fracture EMERGENT Consult: No Notified: Yes Date Notified: 02/14/25 Time Notified: 12:59 Method of Notification: Text Comments:: also informed by the ED 02/17/25 15:04 Consult: Gauger Delivery / Pulmonary Medicine Routine Consulting Provider: Intensivists/Pulmonary Med Reason for Consult: bilateral submassive PE EMERGENT Consult: No Notified: Yes Date Notified: 02/17/25 Time Notified: 15:04 Method of Notification: Text Reason For Visit: LEFT HIP FRACTURE DUE TO MECHANICAL FALL Diagnosis Discharge Diagnosis (1) Closed fracture of left hip: Status: Acute Code(s): S72.002A - Fracture of unspecified part of neck of left femur, initial encounter for closed fracture Plan #Closed left hip fracture due to mechanical fall * Patient fell after his leg got caught under the freezer. Imaging shows a left comminuted femoral neck fracture * patient had left hip ORIF on 02/15/2025. POD 4. * Orthopedics on board. * P.o. oxycodone and IV morphine as needed for pain. Hold off on Tylenol due to elevated liver enzymes * PT OT on board. Fall precautions. * Chest x-ray did not show any acute cardiopulmonary pathology. #Acute hypotension and sinus tachcyardia. * resolved. * * #Acute anemia due to acute blood loss from surgery. * S/p transfusion with 1 unit of packed red blood cells. Hemoglobin today is 9.3. * \ #acute bilateral submassive PE * As stated above patient noted to be tachycardic right from PACU after he had surgery on 02/15/2025. He remained tachycardic overnight and into the morning of 02/16/2025. At time of review on 02/16/2025, patient was pale and tachycardic with weak pulse. Blood pressure check was 67/43. He had not received any fluids after the surgery and so it was thought that his hypotension and tachycardia was due to volume depletion. He was therefore aggressively hydrated with IV fluids. His blood pressure did improve and was in the 120 systolic this morning. However tachycardia persisted and as stated above in light of patient having been at home with a fracture for about 2 days before coming in he is at high risk of PE. Stat CT of the chest was ordered this morning and showed multiple bilateral pulmonary emboli with mild heart strain and lung emphysema and left basilar atelectasis or pneumonia, with no evidence of RV dysfunction. * Was started on heparin drip without bolus because he had already received Eliquis for DVT prophylaxis and also in light of his acute on chronic anemia with his hemoglobin dropping to 7.7 requiring blood transfusion. * BNP was elevated at over 2000. Initial troponin was 37 but trended down was to 29. 2D echo ordered but will be done tomorrow. * I discussed with Dr. Hawley on phone about whether patient is a candidate for revascularization therapy. He is going to review the CT to determine if patient would be a suitable candidate. * Dr Hawley reviewed the imaging and stated that he did not think the patient was a candidate for catheter directed thrombectomy as the blood clots were subsegmental. * 2D echo ordered over the weekend and to be done today. Will switch to therapeutic dose of Eliquis in light of patient's tachycardia resolving. * #Elevated liver enzymes: * Total bilirubin is elevated as well as AST and ALT. Liver enzymes have started trending downwards. Hepatitis panel was negative. * It appears that it was mainly an indirect hyperbilirubinemia. * There does not appear to be any evidence of hemolysis though. * Patient refused liver USG as he would have to be self pay. * liver enzymes are trending downwards * #Leukocytosis: Likely reactive. No clear evidence of infection. Will monitor and trend. #Hyponatremia: resolved. #History of prediabetes with hyperglycemia: On insulin sliding scale. Accu- Cheks ACHS. #History of spherocytosis: s/p remote splenectomy. Stable DVT prophylaxis: not indicated as patient is on heparin drip. CODE STATUS: full code Medications at Discharge Home Medications sertraline 100 mg tablet 200 mg PO DAILY mood stabilizer 02/14/25 apixaban 5 mg (74 tabs) tablets in a dose pack (Eliquis DVT-PE Treat 30D Start) 5 mg PO BID #74 tabs 02/20/25 oxycodone 5 mg tablet 5 mg PO Q4H PRN PRN Pain Score 4-10 3 days #18 tabs 02/20/25 Weight / BMI Weight Weight: 174 lb 13.225 oz Body Mass Index (BMI) 28.2 ABG / Lab / Microbiology Data 02/20/25 05:18 02/20/25 05:18 Laboratory: Laboratory Results - last 24 hr 02/19/25 11:46: POC Glucose 194 H 02/19/25 16:28: POC Glucose 230 H 02/19/25 20:58: POC Glucose 205 H 02/20/25 05:18: WBC 13.5 H, RBC 3.34 L, Hgb 10.4 L, Hct 30.8 L, MCV 92.2, MCH 31.1, MCHC 33.8, RDW Std Deviation 45.8 H, RDW Coeff of Payton 14.3, Plt Count 376, MPV 9.8, Immature Gran % (Auto) 0.400, Neut % (Auto) 66.3, Lymph % (Auto) 12.3 L , [place] % (Auto) 11.3 H, Eos % (Auto) 8.6 H, Baso % (Auto) 1.1 H, Absolute Neuts (auto) 9.0 H, Absolute Lymphs (auto) 1.66, Nucleated RBC % 1.0, Differential Comment , APTT 28.6, Sodium 133, Potassium 4.3, Chloride 95 L, Carbon Dioxide 29.1, Anion Gap 9, BUN 12, Creatinine 0.37 L, Estim Creat Clear Calc 252.43 H, Est GFR (MDRD) Non-Af 143, BUN/Creatinine Ratio 32.4 H, Glucose 197 H, Calcium 9.0 02/20/25 06:35: POC Glucose 197 H Radiography Diagnostic Testing: Radiology Impression Echocardiogram 02/17/25 11:47 Interpretation Summary Normal LV size. Left ventricular systolic function is normal. The left ventricular ejection fraction is 60 %. Pulmonary artery systolic pressure is 79 mmHg. Severe pulmonary hypertension. Contrast injection was performed. Ordering Physician: Agustina Veras Referring Physician: NO PCP Performed By: Ashanti Govea RCS D/C Instructions Call your doctor if you observe: Fever of 101 or Higher, Shortness of breath, Chest pain, Increased palpitations (irregular heartbeat) and Uncontrolled pain DC O2, CPAP, BIPAP Needs Home O2 Discharge instructions: Yes Type of respiratory needs?: Oxygen Oxygen frequency: Continuous Continuous oxygen liters per minute: 2 Discharge Plan Admission Admit Date/Time: 02/14/25 11:37 Primary Reason for Your Visit: left hip fracture, PE Attending Provider: Agustina Veras Primary Care Provider: DIANA COHEN Consulting Providers: Leroy Gan; Gene Ivan; Lenin Mcginnis; Seamus Reagan; Marty Kirk; Robby Newberry; Heath Nunez; Julio Yee; Irma García; Tate Lacy; David Moreno; Tristen Knox; Whit Watkins; Deshawn Navarro; Mony Ignacio; Alexx Malin; Lio Saeed; Jr Ansari; Antonio Del Rosario; Rere Turner; Jeff Sauer; Dedrick Ford; Jovon Bentley; Solomon Lechuga Instructions Patient Instructions: Hip Fx Common Questions, Hip Fx Surg Dc Discharge Orders/Prescriptions Prescriptions: New oxycodone 5 mg Tablet 5 mg PO Q4H PRN PRN (Reason: Pain Score 4-10) 3 Days Qty: 18 0RF Eliquis DVT-PE Treat 30D Start 5 mg (74 tabs) tablets,dose pack 5 mg PO BID Qty: 74 0RF Rx Instructions: take 2 tabs (10mg) twice daily for seven days, then continue with one tablet (5mg) twice daily to treat pulmonary embolism. Continued sertraline 100 mg tablet 200 mg PO DAILY Patient Comments: family unsure of mg dose he takes two 100 mg tablets once a day if I had to guess Rx Instructions: orally daily; Referrals / Follow Up: DIANA COHEN [Other] - Within 1 Week DIANA COHEN [Other] Marty Kirk DO [Med Staff - Active Staff] - Within 2 Weeks (see to establish care for PE with severe pulmonary hypertension) Leroy Gan DO [Med Staff - Active Staff] - Within 2 Weeks Disposition Disposition (needs filled in before D/C Order can be placed): Home, Self Care
--- NOTE | 2025-02-20 12:14 | PCM.DC.SUM ---
Providers Date of Admission: 02/14/25 Date of Discharge: 02/20/25 Primary Care Physician: DIANA COHEN Consultations 02/14/25 12:55 Consult: Orthopedics Routine Consulting Provider: Leroy Gan Reason for Consult: left femoral fracture EMERGENT Consult: No Notified: Yes Date Notified: 02/14/25 Time Notified: 12:59 Method of Notification: Text Comments:: also informed by the ED 02/17/25 15:04 Consult: Graphics Edit Technician / Pulmonary Medicine Routine Consulting Provider: Intensivists/Pulmonary Med Reason for Consult: bilateral submassive PE EMERGENT Consult: No Notified: Yes Date Notified: 02/17/25 Time Notified: 15:04 Method of Notification: Text Reason For Visit: LEFT HIP FRACTURE DUE TO MECHANICAL FALL Diagnosis Discharge Diagnosis (1) Closed fracture of left hip: Status: Acute Code(s): S72.002A - Fracture of unspecified part of neck of left femur, initial encounter for closed fracture Plan #Closed left hip fracture due to mechanical fall Patient fell after his leg got caught under the freezer. Imaging shows a left comminuted femoral neck fracture patient had left hip ORIF on 02/15/2025. POD 4. Orthopedics on board. P.o. oxycodone and IV morphine as needed for pain. Hold off on Tylenol due to elevated liver enzymes PT OT on board. Fall precautions. Chest x-ray did not show any acute cardiopulmonary pathology. #Acute hypotension and sinus tachcyardia. resolved. #Acute anemia due to acute blood loss from surgery. S/p transfusion with 1 unit of packed red blood cells. Hemoglobin today is 9.3. \ #acute bilateral submassive PE As stated above patient noted to be tachycardic right from PACU after he had surgery on 02/15/2025. He remained tachycardic overnight and into the morning of 02/16/2025. At time of review on 02/16/2025, patient was pale and tachycardic with weak pulse. Blood pressure check was 67/43. He had not received any fluids after the surgery and so it was thought that his hypotension and tachycardia was due to volume depletion. He was therefore aggressively hydrated with IV fluids. His blood pressure did improve and was in the 120 systolic this morning. However tachycardia persisted and as stated above in light of patient having been at home with a fracture for about 2 days before coming in he is at high risk of PE. Stat CT of the chest was ordered this morning and showed multiple bilateral pulmonary emboli with mild heart strain and lung emphysema and left basilar atelectasis or pneumonia, with no evidence of RV dysfunction. Was started on heparin drip without bolus because he had already received Eliquis for DVT prophylaxis and also in light of his acute on chronic anemia with his hemoglobin dropping to 7.7 requiring blood transfusion. BNP was elevated at over 2000. Initial troponin was 37 but trended down was to 29. 2D echo ordered but will be done tomorrow. I discussed with Dr. Hawley on phone about whether patient is a candidate for revascularization therapy. He is going to review the CT to determine if patient would be a suitable candidate. Dr Hawley reviewed the imaging and stated that he did not think the patient was a candidate for catheter directed thrombectomy as the blood clots were subsegmental. 2D echo ordered over the weekend and to be done today. Will switch to therapeutic dose of Eliquis in light of patient's tachycardia resolving. #Elevated liver enzymes: Total bilirubin is elevated as well as AST and ALT. Liver enzymes have started trending downwards. Hepatitis panel was negative. It appears that it was mainly an indirect hyperbilirubinemia. There does not appear to be any evidence of hemolysis though. Patient refused liver USG as he would have to be self pay. liver enzymes are trending downwards #Leukocytosis: Likely reactive. No clear evidence of infection. Will monitor and trend. #Hyponatremia: resolved. #History of prediabetes with hyperglycemia: On insulin sliding scale. Accu-Cheks ACHS. #History of spherocytosis: s/p remote splenectomy. Stable DVT prophylaxis: not indicated as patient is on heparin drip. CODE STATUS: full code Medications at Discharge Home Medications sertraline 100 mg tablet 200 mg PO DAILY mood stabilizer 02/14/25 apixaban 5 mg (74 tabs) tablets in a dose pack (Eliquis DVT-PE Treat 30D Start) 5 mg PO BID #74 tabs 02/20/25 oxycodone 5 mg tablet 5 mg PO Q4H PRN PRN Pain Score 4-10 3 days #18 tabs 02/20/25 Hospital Course Operations None Procedures None Summary of Care Provided Minutes Spent on Discharge: 45 Hospital Course: BONITA BLAKE, is a 44 M with a PMH as outlined who presents via the ED on 02/14/2025 with a complaint of left hip fracture. He caught his foot under the freezer and lost his balance and fell, resulting in injury to his left leg. He could not weight bear and had severe pain in his LLE so the family took him to a chiropractor to get some xrays. They were told the xrays showed he had a left femur fracture and so was told to come to the ED. I saw patient with his parents by his bedside. He had no active complaints and pain was quite well-controlled. 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 He has no other underlying medical issues. He had a similar fall about 5 years ago and had his right hip also replaced. Review of systems otherwise negative. Vitals at time of review were temperature of 98 Fahrenheit with blood pressure of 127/86, respiratory rate of 14 and pulse rate of 97 he was saturating at 99% on room air. CBC showed hemoglobin of 12.7 with WBC of 12.2 and platelets of 276. Chemistry showed sodium of 133 with potassium of 4.3 and bicarb of 24.8. Anion gap is 13. Creatinine is 0.49. Total bilirubin is 2.63 with AST of 203 and ALT of 130. There are no previous LFTs to compare with. Pelvic x-ray showed a significantly comminuted fracture of the intertrochanteric region and proximal shaft of the left femur and chest x-ray showed multiple left rib fractures which were chronic in nature and marked left pleural thickening with no definite pleural effusion seen. He was admitted to be managed for acute left hip fracture due to mechanical fall. Orthopedic surgery was consulted and he was placed on p.o. oxycodone as well as IV morphine as needed for pain. He was not placed on Tylenol due to elevated liver enzymes. Patient had left cephalomedullary nailing on 02/15/2025. The surgery went well but postop course was complicated by persistent tachycardia which lasted throughout the night. The following morning when he was reviewed patient was hypotensive with blood pressure in the 60s and with a weak and thready pulse. He was aggressively hydrated with IV fluids given IV fluid boluses due to concerns about shock thought to be due to acute blood loss from surgery. His hypotension resolved but patient remained tachycardic. He therefore had a CTA of the chest done which did show bilateral pulmonary emboli with mild right heart strain and lung emphysema. There was no evidence of right ventricular dysfunction. BNP and troponin were elevated. He was started on heparin drip. He could have 2D echo on the day the PE was diagnosed. 2D echo done on 02/17/2025 showed EF of 60% with no regional wall motion abnormality seen in pulmonary artery systolic pressure of 79 mmHg indicating severe pulmonary hypertension. Of note when the PE was diagnosed, this hospitalist is discussed with vascular surgery about whether the patient could be a candidate for catheter directed thrombectomy or thrombolysis. Vascular surgeon Dr. Hawley reviewed images and said he did not think patient was an appropriate candidate as the clot burden was mainly in the subsegmental branches of the pulmonary arteries. Patient's tachycardia resolved and his oxygen requirements was weaned down. He was transition to p.o. Eliquis. He did work with physical therapy and family opted for home PT OT. He was discharged home on 02/20/2025 with a treatment course of Eliquis and was counseled that he would need to be on blood thinners for at least 6 months. He was given a prescription for p.o. oxycodone 5 mg every 4 hours as needed for total of 18 tablets and 0 refills. OARRS score was checked and no red flags were seen. Of note during the admission liver ultrasound was ordered on account of elevated liver enzymes the patient refused this as he would be self-pay. Liver enzymes did trend downwards. Was discharged home on 02/20/2025. He had walking pulse ox which showed that he required 2 L of oxygen. He is follow-up with his primary care doctor and orthopedic surgeon within 1 to 2 weeks. Patient and his mother were counseled that he will need follow-up echo to monitor the pulmonary artery pressure to monitor for resolution of the severe pulmonary hypertension. Patient was seen and examined prior to discharge. He felt much better and had no active complaints. He had an uneventful night. His mother was by his bedside. Review of systems otherwise negative. Labs and vitals reviewed. Home medication reviewed and reconciled. Physical Exam Const alert and no apparent distress Constitutional Narrative: has underlying MRDD but is able to communicate and answer questions. Looks more alert and communicative. General Appearance: cooperative and comfortable HEENT normocephalic, head/scalp atraumatic and hearing grossly normal bilaterally Mouth: oral and palatal mucosa normal Eyes PERRL and EOMs intact bilaterally Neck no lymphadenopathy, supple and no JVD Lymph Lymphatic: no lymphedema noted Resp Resp Narrative: Mildly diminished breath sounds bibasilarly. No wheezes or crackles. Was on room air at time of review today Cardio regular rate, regular rhythm, S1 normal heart sound, S2 normal heart sound and no murmurs GI normal to inspection, nondistended, normoactive bowel sounds, soft to palpation and non-tender Extremity normal to inspection, full ROM and no clubbing, cyanosis or edema Extremity Narrative: intact dressing over left hip. No evidence of bleeding at surgical site. General Extremity: no tenderness to palpation of joints or extremities Skin General Skin Exam: no breakdown Neuro oriented x3, CN's II-XII intact bilaterally and moves all extremities Sensorium / Orientation: awake and alert Motor Exam: general weakness Psych Mood & Affect: flat affect Weight / BMI Weight Weight: 174 lb 13.225 oz Body Mass Index (BMI) 28.2 ABG / Lab / Microbiology Data 02/20/25 05:18 02/20/25 05:18 Laboratory: Laboratory Results - last 24 hr 02/19/25 20:58: POC Glucose 205 H 02/20/25 05:18: WBC 13.5 H, RBC 3.34 L, Hgb 10.4 L, Hct 30.8 L, MCV 92.2, MCH 31.1, MCHC 33.8, RDW Std Deviation 45.8 H, RDW Coeff of [place] 14.3, Plt Count 376, MPV 9.8, Immature Gran % (Auto) 0.400, Neut % (Auto) 66.3, Lymph % (Auto) 12.3 L, [place] % (Auto) 11.3 H, Eos % (Auto) 8.6 H, Baso % (Auto) 1.1 H, Absolute Neuts (auto) 9.0 H, Absolute Lymphs (auto) 1.66, Nucleated RBC % 1.0, Differential Comment , APTT 28.6, Sodium 133, Potassium 4.3, Chloride 95 L, Carbon Dioxide 29.1, Anion Gap 9, BUN 12, Creatinine 0.37 L, Estim Creat Clear Calc 252.43 H, Est GFR (MDRD) Non-Af 143, BUN/Creatinine Ratio 32.4 H, Glucose 197 H, Calcium 9.0 02/20/25 06:35: POC Glucose 197 H 02/20/25 12:38: POC Glucose 211 H Radiography Diagnostic Testing: Radiology Impression Echocardiogram 02/17/25 11:47 Interpretation Summary Normal LV size. Left ventricular systolic function is normal. The left ventricular ejection fraction is 60 %. Pulmonary artery systolic pressure is 79 mmHg. Severe pulmonary hypertension. Contrast injection was performed. Ordering Physician: Agustina Veras Referring Physician: EDWINA PCP Performed By: Ashanti Gvoea RCS D/C Instructions Discharge Activity: Return to Normal Activity Call your doctor if you observe: Fever of 101 or Higher, Shortness of breath, Chest pain, Increased palpitations (irregular heartbeat) and Uncontrolled pain DC O2, CPAP, BIPAP Needs Home O2 Discharge instructions: Yes Type of respiratory needs?: Oxygen Oxygen frequency: Continuous Continuous oxygen liters per minute: 2 DC home with Oxygen: Yes Home O2 MD Review: I have reviewed the oxygen testing, and the patient qualifies for home oxygen equipment and portability. The patient is mobile in the home and the community. Meaningful Use Info Meaningful Use Meaningful Use Diagnoses (Choose all that apply): VTE VTE Anticoag overlap given w/in hospital stay or rx'd at dc?: Yes Pt receive overlap for 5 days?: No Reason overlap not ordered, prescribed, or given for 5 days: Treatment Not Indicated Discharge Plan Admission Admit Date/Time: 02/14/25 11:37 Primary Reason for Your Visit: left hip fracture, PE Attending Provider: Agustina Veras Primary Care Provider: DIANA COHEN Consulting Providers: Leroy Gan; Gene Ivan; Lenin Mcginnis; Seamus Reagan; Marty Kirk; Robby Newberry; Heath Nunez; Julio Yee; Irma García; Tate Lacy; David Moreno; Tristen Knox; Whit Watkins; Deshawn Navarro; Mony Ignacio; Alexx Malin; Lio Saeed; Jr Ansari; Antonio Del Rosario; Rere Turner; Jeff Sauer; Dedrick Ford; Jovon Bentley; Solomon Lechuga Instructions Patient Instructions: Hip Fx Common Questions, Hip Fx Surg Dc Discharge Orders/Prescriptions Prescriptions: New oxycodone 5 mg Tablet 5 mg PO Q4H PRN PRN (Reason: Pain Score 4-10) 3 Days Qty: 18 0RF Eliquis DVT-PE Treat 30D Start 5 mg (74 tabs) tablets,dose pack 5 mg PO BID Qty: 74 0RF Rx Instructions: take 2 tabs (10mg) twice daily for seven days, then continue with one tablet (5mg) twice daily to treat pulmonary embolism. Continued sertraline 100 mg tablet 200 mg PO DAILY Patient Comments: family unsure of mg dose he takes two 100 mg tablets once a day if I had to guess Rx Instructions: orally daily; Referrals / Follow Up: DIANA COHEN [Other] - Within 1 Week DIANA COHEN [Other] Marty Kirk DO [Med Staff - Active Staff] - Within 2 Weeks (see to establish care for PE with severe pulmonary hypertension) Leroy Gan DO [Med Staff - Active Staff] - Within 2 Weeks Disposition Disposition (needs filled in before D/C Order can be placed): Home, Self Care Charges/Coding Visit Charges Inpatient E&M: 37951 Disch Hosp >30min
[2025-02-20 12:53] VITALS: O2SAT 95; O2SAT 97
--- NOTE | 2025-02-20 13:29 | PHA.DC_ITS ---
Pharmacy [facility] Counseling Pharmacy Service has performed discharge medication reconciliation and counseling for this patient. 1. APIXABAN 10MG PO BID X 7 DAYS, THEN 5MG PO BID THEREAFTER 2. OXYCODONE 5MG PO Q4H PRN PAIN The patient's discharge medication list was reviewed for discrepancies and discrepancies were resolved. The patient's mother was counseled on the following discharge medications and changes in medications for homegoing were reviewed. The Reason for Use, instructions for use, and potential side effects were reviewed for all new medications. The patient's questions regarding all of their medications were answered. The patient's mother was able to verbally demonstrate an understanding of their discharge medications. Medications at Discharge Home Medications sertraline 100 mg tablet 200 mg PO DAILY mood stabilizer 02/14/25 apixaban 5 mg (74 tabs) tablets in a dose pack (Eliquis DVT-PE Treat 30D Start) 5 mg PO BID #74 tabs 02/20/25 oxycodone 5 mg tablet 5 mg PO Q4H PRN PRN Pain Score 4-10 3 days #18 tabs 02/20/25
[2025-02-20 15:00] VITALS: BP 116/69; PULSE 89; RESP 17; TEMP 36.7; O2SAT 95
--- NOTE | 2025-02-20 15:30 | CASEMGMT ---
Social Work Patient is to be discharged today to home, in care of parents. Met with patient and mother, introducing to self and reason for visit. Provided signed script for outpatient PT and presented to the mother. Mother reports the family has had much experience with rehab after fractures and surgery, so feels will not need to use the script, but appreciates having this in case get home and see patient needs more care. Provided the mother with a 30 days savings card for Eliquis, as provided by the RN SEVERINO, as this is a new prescription patient is going home with and patient does not have insurance due to being from the [facility]. Patient's mother appreciative of this resource. Mother reports to have a hire car driver coming to pick patient and mother up. Mother denies any other needs or concerns for patient's care at home going. Report to have all needed DME at home for patient's transition to home. No other needs requested or indicated. -SAGAR Mcdonald
== END 2025-02-20 16:09 | disposition home or self-care (01) | DRG 480 ==
LOC: ED 11:38 → MS3 11:41 → PCU 02-17 11:05
PROVIDERS: Student in an Organized Health Care Education/Training Program; Admitting Provider Student in an Organized Health Care Education/Training Program; Emergency Provider Emergency Medicine; Visit Provider Student in an Organized Health Care Education/Training Program
PROC: 0QS736Z Reposition Left Upper Femur with Intramedullary Internal Fixation Device, Percutaneous Approach (ICD-10-PCS; CPT 27245; principal; 2025-02-15 14:30)
DX: S72.142A Displaced intertrochanteric fracture of left femur, initial encounter for closed fracture (principal); I26.99 Other pulmonary embolism without acute cor pulmonale; D62 Acute posthemorrhagic anemia; E87.1 Hypo-osmolality and hyponatremia; T81.718A Complication of other artery following a procedure, not elsewhere classified, initial encounter; J43.9 Emphysema, unspecified; W18.30XA Fall on same level, unspecified, initial encounter; D58.0 Hereditary spherocytosis; Z90.81 Acquired absence of spleen; Z96.641 Presence of right artificial hip joint; W23.1XXA Caught, crushed, jammed, or pinched between stationary objects, initial encounter; Y83.8 Other surgical procedures as the cause of abnormal reaction of the patient, or of later complication, without mention of misadventure at the time of the procedure; Y92.239 Unspecified place in hospital as the place of occurrence of the external cause
CPT/HCPCS: 36415; 71045; 71275; 72170; 73502; 73552; 76000; 80048; 80053; 80076; 82248; 82962; 83880; 84484; 85025; 85610; 85730; 86706; 86803; 86850; 86900; 86901; 86920; 87340; 93005; 93306; 97116; 97163; 97166; 97530; 97535; 99284; C1776; P9016; Q9967; A4216; J1938; J2405